=== PATIENT | female | born 1965 | race Caucasian/White ===

== ENCOUNTER 2020-05-14 18:37 | Inpatient (IN) | payer BC ==
[~2020-05-14 18:37] MED LIST: Iopamidol-370 76% 500 ML 1 ML ONE
[2020-05-14 19:40] LABS: #Basophils 0.1 thou/uL (0.0-0.2); #Lymphocytes 1.2 thou/uL (1.20-3.40); #Monocytes 0.9 thou/uL (0.11-0.59); %Basophils 0.4 % (0.0-1.0); %Eosinophils 0.2 % (0.0-10.0); %Lymphocytes 9.3 % (21.0-51.0); %Monocytes 6.6 % (0.0-10.0); %Neutrophils 83.5 % (42.0-75.0); Mean Corpuscular HGB CONC 33.3 g/dL (32.0-36.0); Mean Corpuscular Hemoglobin 29.4 pg (27.0-31.0); Mean Corpuscular Volume 88.2 fL (78.0-98.0); Platelet Count 286 thou/uL (130-400); RBC Distribution Width 12.1 % (11.5-14.5); Red Blood Cell (RBC) Count 5.47 mill/uL (4.20-5.40); White Blood Cell (WBC) Count 13.1 thou/uL (4.8-10.8)
[2020-05-14 20:12] LABS: ALT (SGPT) 31 U/L (8-55); AST (SGOT) 48 U/L (5-34); Albumin 3.6 g/dL (3.5-5.0); Alkaline Phosphatase 241 U/L (40-110); Anion Gap 17 mmol/L (10-20); BUN (Urea Nitrogen) 10 mg/dL (9.8-20.1); Bilirubin, Total 0.9 mg/dL (0.2-1.2); Calc. Creatinine Clearance 0 mL/min (70-130); Calcium 9.3 mg/dL (7.8-10.44); Carbon Dioxide 23 mmol/L (22-29); Chloride 100 mmol/L (98-107); Globulin 4.2 g/dL (2.4-3.5); Glucose 361 mg/dL (70-105); Potassium 3.7 mmol/L (3.5-5.1); Protein, Total 7.8 g/dL (6.0-8.3); Sodium 136 mmol/L (136-145)
[2020-05-14] MEDS ORDERED: Diltiazem 125 MG/25 ML ONE ×2 (20:16→21:23)
[2020-05-14] MEDS ORDERED: Promethazine HCl 25 MG/ML VIAL ONE ×2 (20:22→23:27)
[2020-05-14] MEDS ORDERED: Magnesium 2 GM/50 ML BAG (IN WATER) ONE (20:22)
[2020-05-14] MEDS ORDERED: Morphine 4 MG/ML VIAL ONE (20:35)
[2020-05-14] MEDS ORDERED: Ondansetron PF 4 MG/2 ML Vial ONE (20:35)
[2020-05-14 20:53] LABS: Bacteria/HPF None Seen HPF (None Seen); Bilirubin Negative (Negative); Blood, Urine Negative (Negative); Clarity Clear (Clear); Glucose, Urine (Dipstick) Greater than 1000 mg/dL (Negative); Ketone, Urine 60 mg/dL (Negative); Leukocyte Negative Leu/uL (Negative); Nitrite Negative (Negative); Protein, Urine (Dipstick) 50 mg/dL (Neg-Trace); RBC/HPF 0-3 HPF (0-3); Specific Gravity, Urine 1.033 (1.002-1.036); Urobilinogen Normal mg/dL (Less than 2)
[2020-05-14] MEDS ORDERED: cefTRIAXone\\ROCEPHIN 1 GM VIAL ONE (21:57)
[2020-05-14] MEDS ORDERED: HYDROmorphone 0.5 MG/0.5 ML SYRINGE ONE (23:26)
[2020-05-14] MEDS ORDERED: Amlodipine 5 MG TAB ONE (23:27)
[2020-05-14] MEDS ORDERED: Gabapentin 300 MG CAP PO SCH (23:45)
[2020-05-14] MEDS ORDERED: DULoxetine 60 MG CAP PO SCH (23:45)
[2020-05-14] MEDS ORDERED: tiZANidine HCl 4 MG TAB PO SCH (23:45)
[2020-05-15] MEDS ORDERED: Labetalol HCl 100 MG/20 ML VIAL ONE (00:23)
[2020-05-15] MEDS ORDERED: Ondansetron PF 4 MG/2 ML Vial IVP PRN (00:40)
[2020-05-15] MEDS ORDERED: Dextrose 5% in Water 1,000 ML IV PRN (00:57)
[2020-05-15] MEDS ORDERED: Dextrose 50% Abboject 50 ML SYRINGE SLOW IVP PRN (00:57)
[2020-05-15] MEDS ORDERED: hydrALAZINE 20 MG/ML VIAL SLOW IVP PRN (00:59)
[2020-05-15] MEDS ORDERED: HYDROmorphone 2 MG TAB PO PRN (01:02)
[2020-05-15] MEDS ORDERED: Vancomycin 1 GM/200 ML BAG ONE (01:22)
[2020-05-15 02:11] LABS: Amphetamine Not Detected (NotDetected); Barbiturates Screen Not Detected (NotDetected); Benzodiazepine Screen Not Detected (NotDetected); Cocaine Metabolite Screen Not Detected (NotDetected); Medtox Control Line Valid? VALID (VALID); Medtox Reader # READER 1; Methadone Not Detected (NotDetected); Methamphetamine Not Detected (NotDetected); Opiate Screen Detected (NotDetected); Oxycodone Screen Not Detected (NotDetected); Phencyclidine (PCP) Not Detected (NotDetected); THC/Cannabinoid Screen Not Detected (NotDetected); Tricyclic Screen Not Detected (NotDetected)
[2020-05-15 03:04] VITALS: BMI 29.2
[2020-05-15] MEDS ORDERED: Cefepime 1 GM VIAL ONE (04:54)
[2020-05-15] MEDS: Cefepime 1 GM in Sodium Chloride 0.9% 100 ML IVPB SCH ×2 (05:05→18:16)
[2020-05-15] MEDS ORDERED: Ondansetron PF 4 MG/2 ML Vial ONE (05:24)
[2020-05-15 05:51] LABS: SARS-CoV-2 PCR by NAA Not Detected (NotDetected)
[2020-05-15] MEDS ORDERED: HumaLOG 300 UNITS/3 ML VIAL ONE (07:33)
[2020-05-15] MEDS: HumaLOG 300 UNITS/3 ML VIAL SC PRN ×4 (07:40→22:35)
[2020-05-15 09:04] LABS: #Basophils 0.1 thou/uL (0.0-0.2); #Eosinphils 0.2 thou/uL (0.0-0.7); #Lymphocytes 2.8 thou/uL (1.20-3.40); #Monocytes 0.8 thou/uL (0.11-0.59); #Neutrophils 6.5 thou/uL (1.40-6.50); %Basophils 0.7 % (0.0-1.0); %Eosinophils 2.1 % (0.0-10.0); %Lymphocytes 26.9 % (21.0-51.0); %Monocytes 7.4 % (0.0-10.0); %Neutrophils 62.8 % (42.0-75.0); Hemoglobin 13.7 g/dL (12.0-16.0); Mean Corpuscular Hemoglobin 29.6 pg (27.0-31.0); Mean Corpuscular Volume 89.6 fL (78.0-98.0); Platelet Count 266 thou/uL (130-400); Red Blood Cell (RBC) Count 4.62 mill/uL (4.20-5.40); White Blood Cell (WBC) Count 10.4 thou/uL (4.8-10.8)
[2020-05-15 09:17] LABS: Anion Gap 14 mmol/L (10-20); BUN (Urea Nitrogen) 6 mg/dL (9.8-20.1); Calc. Creatinine Clearance 98 mL/min (70-130); Carbon Dioxide 23 mmol/L (22-29); Chloride 104 mmol/L (98-107); Potassium 3.2 mmol/L (3.5-5.1); Sodium 138 mmol/L (136-145)
[2020-05-15 09:18] LABS: Calcium 8.4 mg/dL (7.8-10.44); Glucose 218 mg/dL (70-105)
[2020-05-15] MEDS ORDERED: Potassium Chloride 20 MEQ TAB PO SCH (09:45)
[2020-05-15] MEDS ORDERED: Potassium Chloride 20 MEQ TAB ONE (10:06)
[2020-05-15] MEDS ORDERED: Acetaminophen 325 MG TAB ONE (10:30)
[2020-05-15] MEDS: Sodium Chloride 0.9% 1,000 ML IV SCH ×3 (10:48→23:02)
[2020-05-15] MEDS: Acetaminophen 325 MG TAB PO PRN ×3 (10:49→22:20)
[2020-05-15] MEDS: Gabapentin 300 MG CAP PO SCH ×2 (14:59→20:07)
[2020-05-15] MEDS: Vancomycin HCl 750 MG in Sodium Chloride 0.9% 250 ML 250 ML IVPB SCH (14:59)
[2020-05-15] MEDS: Promethazine 25 MG TAB PO PRN (16:42)
[2020-05-15] MEDS: HYDROmorphone 2 MG TAB PO PRN ×2 (16:42→22:33)
[2020-05-15] MEDS: tiZANidine HCl 4 MG TAB PO SCH (20:07)
[2020-05-15 23:44] LABS: Anion Gap 11 mmol/L (10-20); Carbon Dioxide 27 mmol/L (22-29); Chloride 105 mmol/L (98-107); Magnesium 1.7 mg/dL (1.6-2.6); Potassium 3.6 mmol/L (3.5-5.1); Sodium 139 mmol/L (136-145)
[2020-05-16] MEDS: Vancomycin HCl 750 MG in Sodium Chloride 0.9% 250 ML 250 ML IVPB SCH ×2 (02:22→15:08)
[2020-05-16] MEDS: Acetaminophen 325 MG TAB PO PRN ×3 (02:26→20:36)
[2020-05-16] MEDS: Cefepime 1 GM in Sodium Chloride 0.9% 100 ML IVPB SCH ×2 (04:51→17:58)
[2020-05-16] MEDS: HYDROmorphone 2 MG TAB PO PRN ×2 (04:52→17:58)
[2020-05-16 05:06] LABS: #Basophils 0.1 thou/uL (0.0-0.2); #Eosinphils 0.4 thou/uL (0.0-0.7); #Lymphocytes 2.8 thou/uL (1.20-3.40); #Monocytes 0.6 thou/uL (0.11-0.59); #Neutrophils 3.5 thou/uL (1.40-6.50); %Basophils 1.5 % (0.0-1.0); %Eosinophils 5.5 % (0.0-10.0); %Lymphocytes 38.4 % (21.0-51.0); %Monocytes 7.5 % (0.0-10.0); %Neutrophils 47.1 % (42.0-75.0); Hemoglobin 13.1 g/dL (12.0-16.0); Mean Corpuscular Hemoglobin 29.9 pg (27.0-31.0); Mean Corpuscular Volume 90.5 fL (78.0-98.0); Mean Platelet Volume 9.2 fL (7.4-10.4); Platelet Count 210 thou/uL (130-400); RBC Distribution Width 11.9 % (11.5-14.5); Red Blood Cell (RBC) Count 4.38 mill/uL (4.20-5.40); White Blood Cell (WBC) Count 7.4 thou/uL (4.8-10.8)
[2020-05-16 05:40] LABS: Anion Gap 15 mmol/L (10-20); BUN (Urea Nitrogen) 4 mg/dL (9.8-20.1); Calc. Creatinine Clearance 98 mL/min (70-130); Calcium 8.5 mg/dL (7.8-10.44); Carbon Dioxide 22 mmol/L (22-29); Chloride 105 mmol/L (98-107); Glucose 243 mg/dL (70-105); Potassium 3.2 mmol/L (3.5-5.1); Sodium 139 mmol/L (136-145)
[2020-05-16] MEDS: HumaLOG 300 UNITS/3 ML VIAL SC PRN ×4 (05:50→20:35)
[2020-05-16] MEDS ORDERED: HYDROMORPHONE HCL 8 MG PO SCH (09:00)
[2020-05-16] MEDS: Sodium Chloride 0.9% 1,000 ML IV SCH ×3 (09:50→20:35)
[2020-05-16] MEDS: DULoxetine 60 MG CAP PO SCH (09:52)
[2020-05-16] MEDS: Amlodipine 10 MG TAB PO SCH (09:53)
[2020-05-16] MEDS: Gabapentin 300 MG CAP PO SCH ×3 (09:53→20:37)
[2020-05-16] MEDS: HYDROmorphone 2 MG TAB PO SCH (09:54)
[2020-05-16] MEDS: Enoxaparin Sodium 40 MG/0.4 ML SYRINGE SC SCH (09:57)
[2020-05-16] MEDS: Potassium Chloride 20 MEQ TAB PO SCH ×2 (10:02→15:08)
[2020-05-16] MEDS ORDERED: Nitroglycerin 0.4 MG TAB (25 Tab Bottle) SL PRN (11:17)
[2020-05-16] MEDS: Promethazine 25 MG TAB PO PRN (11:29)
[2020-05-16] MEDS ORDERED: Metoprolol Tartrate 25 MG TAB PO SCH ×2 (11:30→21:00)
[2020-05-16 12:47] LABS: Troponin I Less than 0.010 ng/mL (< 0.028)
[2020-05-16] MEDS ORDERED: Magnesium Sulfate 3 GM in Sodium Chloride 0.9% 100 ML IVPB SCH (13:30)
[2020-05-16 15:28] LABS: Vancomycin, Trough 5.5 ug/mL
[2020-05-16 15:38] LABS: Troponin I Less than 0.010 ng/mL (< 0.028)
[2020-05-16] MEDS: tiZANidine HCl 4 MG TAB PO SCH (20:37)
[2020-05-16] MEDS: Vancomycin 1 GM in Premix Bag 1 BAG IVPB SCH (20:38)
[2020-05-17] MEDS: HYDROmorphone 2 MG TAB PO PRN ×3 (02:19→22:15)
[2020-05-17 04:17] LABS: #Basophils 0.1 thou/uL (0.0-0.2); #Eosinphils 0.4 thou/uL (0.0-0.7); #Lymphocytes 2.3 thou/uL (1.20-3.40); #Monocytes 0.4 thou/uL (0.11-0.59); #Neutrophils 3.4 thou/uL (1.40-6.50); %Basophils 1.3 % (0.0-1.0); %Eosinophils 6.3 % (0.0-10.0); %Lymphocytes 33.9 % (21.0-51.0); %Monocytes 6.5 % (0.0-10.0); %Neutrophils 51.9 % (42.0-75.0); Hemoglobin 13.3 g/dL (12.0-16.0); Mean Corpuscular HGB CONC 33.5 g/dL (32.0-36.0); Mean Corpuscular Hemoglobin 30.1 pg (27.0-31.0); Mean Corpuscular Volume 89.8 fL (78.0-98.0); Mean Platelet Volume 8.9 fL (7.4-10.4); Platelet Count 190 thou/uL (130-400); RBC Distribution Width 11.8 % (11.5-14.5); Red Blood Cell (RBC) Count 4.42 mill/uL (4.20-5.40); White Blood Cell (WBC) Count 6.6 thou/uL (4.8-10.8)
[2020-05-17 04:39] LABS: Anion Gap 15 mmol/L (10-20); BUN (Urea Nitrogen) 4 mg/dL (9.8-20.1); Calc. Creatinine Clearance 97 mL/min (70-130); Calcium 8.4 mg/dL (7.8-10.44); Carbon Dioxide 20 mmol/L (22-29); Chloride 106 mmol/L (98-107); Glucose 224 mg/dL (70-105); Magnesium 1.9 mg/dL (1.6-2.6); Potassium 4.6 mmol/L (3.5-5.1); Sodium 136 mmol/L (136-145)
[2020-05-17 04:40] LABS: Cardiac Risk 4.6 (Less than 4.5); Cholesterol 172 mg/dl (< 200 Desired); HDL Cholesterol 37 mg/dL (>60 Neg Risk); LDL Cholesterol, Calculated 93 mg/dL; Lipase 108 U/L (8-78); Phosphorus 3.7 mg/dL (2.3-4.7); Triglycerides 209 mg/dL (Less than 150)
[2020-05-17] MEDS: Vancomycin 1 GM in Premix Bag 1 BAG IVPB SCH ×3 (05:58→22:31)
[2020-05-17] MEDS: HumaLOG 300 UNITS/3 ML VIAL SC PRN ×3 (05:58→17:23)
[2020-05-17] MEDS: Acetaminophen 325 MG TAB PO PRN ×3 (06:21→15:57)
[2020-05-17] MEDS: Amlodipine 10 MG TAB PO SCH (08:49)
[2020-05-17] MEDS: DULoxetine 60 MG CAP PO SCH (08:49)
[2020-05-17] MEDS: Enoxaparin Sodium 40 MG/0.4 ML SYRINGE SC SCH (08:49)
[2020-05-17] MEDS: Gabapentin 300 MG CAP PO SCH ×3 (08:50→22:15)
[2020-05-17] MEDS: HYDROmorphone 2 MG TAB PO SCH (08:51)
[2020-05-17] MEDS: Cefepime 1 GM in Sodium Chloride 0.9% 100 ML IVPB SCH ×2 (08:52→22:24)
[2020-05-17] MEDS: Sodium Chloride 0.9% 1,000 ML IV SCH ×2 (09:09→22:14)
[2020-05-17] MEDS ORDERED: Lantus 1000 UNITS/10 ML VIAL SC SCH (21:00)
[2020-05-17] MEDS: tiZANidine HCl 4 MG TAB PO SCH (22:16)
[2020-05-17 22:27] LABS: Vancomycin, Trough 15.4 ug/mL
[2020-05-18] MEDS: HYDROmorphone 2 MG TAB PO PRN (04:38)
[2020-05-18] MEDS: HumaLOG 300 UNITS/3 ML VIAL SC PRN ×2 (05:28→12:27)
[2020-05-18] MEDS: Sodium Chloride 0.9% 1,000 ML IV SCH (08:59)
[2020-05-18] MEDS: Enoxaparin Sodium 40 MG/0.4 ML SYRINGE SC SCH (09:00)
[2020-05-18] MEDS: DULoxetine 60 MG CAP PO SCH (09:00)
[2020-05-18] MEDS ORDERED: Lisinopril 5 MG TAB PO SCH (09:00)
[2020-05-18] MEDS: HYDROmorphone 2 MG TAB PO SCH (09:02)
[2020-05-18] MEDS: Gabapentin 300 MG CAP PO SCH (09:04)
[2020-05-18] MEDS: Amlodipine 10 MG TAB PO SCH (09:32)
[2020-05-18 11:16] VITALS: TEMP 98.1
[2020-05-18] MEDS ORDERED: cloNIDine 0.1 MG TAB PO PRN (11:25)
[2020-05-18 12:25] VITALS: BP 159/87
[2020-05-18] MEDS: Acetaminophen 325 MG TAB PO PRN (12:26)
[2020-05-18] MEDS ORDERED: Rosuvastatin 10 MG TAB PO SCH (21:00)
== END 2020-05-18 14:35 | disposition home or self-care (01) | DRG 897 ==
LOC: ERS 18:37 → ERHOLD 22:59 → 2SW 05-15 14:11 → 2NO 05-15 22:50
PROVIDERS: ADMIT Internal Medicine; ATTEND Internal Medicine
DX: F11.288 Opioid dependence with other opioid-induced disorder (principal); I47.1 Supraventricular tachycardia; E11.9 Type 2 diabetes mellitus without complications; I10 Essential (primary) hypertension; K21.9 Gastro-esophageal reflux disease without esophagitis; G89.29 Other chronic pain; M54.5 Low back pain; M79.7 Fibromyalgia; E87.6 Hypokalemia; N28.1 Cyst of kidney, acquired; E83.42 Hypomagnesemia; E66.9 Obesity, unspecified; R10.9 Unspecified abdominal pain; Z68.29 Body mass index [BMI] 29.0-29.9, adult; Z90.49 Acquired absence of other specified parts of digestive tract; Z98.51 Tubal ligation status; Z82.49 Family history of ischemic heart disease and other diseases of the circulatory system
CPT/HCPCS: 36415; 36416; 70450; 71045; 71275; 74177; 80048; 80053; 80061; 80202; 80306; 81003; 81015; 82010; 82150; 83605; 83690; 83735; 84100; 84443; 84484; 85025; 87635; 93005; 93306; 96365; 96366; 96367; 96375; 96376; J0692; J0696; J1170; J1650; J1815; J2270; J2405; J2550; J3370; J3475; J3490; J7050; Q0169; Q9967; U0003; U0005

== ENCOUNTER 2021-03-06 19:23 | Emergency (ER) | payer BC ==
[2021-03-06] MEDS ORDERED: HYDROcodone/Acetaminophen 10/325 mg Tablet ONE (21:23)
[2021-03-07 02:46] LABS: SARS-CoV-2 NAA Rapid Test Not Detected (NotDetected)
== END 2021-03-06 21:00 | disposition home or self-care (01) ==
LOC: ERS 19:23
DX: S46.911A Strain of unspecified muscle, fascia and tendon at shoulder and upper arm level, right arm, initial encounter (principal); I10 Essential (primary) hypertension; E11.9 Type 2 diabetes mellitus without complications; Z20.822 Contact with and (suspected) exposure to COVID-19
CPT/HCPCS: 71046; U0002

== ENCOUNTER 2021-03-26 12:39 | Outpatient (CLI) | payer BC | END 2021-03-26 12:40 | disposition home or self-care (01) | LOC: CT 12:39 | PROVIDERS: ATTEND Physical Therapist | DX: M25.511 Pain in right shoulder (principal) ==

== ENCOUNTER 2021-05-27 11:21 | Outpatient (CLI) | payer BC | END 2021-05-27 11:22 | disposition home or self-care (01) | LOC: MRI 11:21 | PROVIDERS: ATTEND Orthopaedic Surgery | DX: M75.121 Complete rotator cuff tear or rupture of right shoulder, not specified as traumatic (principal); S46.211A Strain of muscle, fascia and tendon of other parts of biceps, right arm, initial encounter ==

== ENCOUNTER 2021-08-14 08:19 | Outpatient (CLI) | payer BC ==
[2021-08-14] MEDS ORDERED: Iopamidol 370 76% 100 ML VIAL ONE (11:57)
== END 2021-08-14 08:20 | disposition home or self-care (01) ==
LOC: CT 08:19
PROVIDERS: ATTEND Psychiatry & Neurology Neurology
DX: G43.719 Chronic migraine without aura, intractable, without status migrainosus (principal)
CPT/HCPCS: 70496; Q9967

== ENCOUNTER 2021-09-24 11:32 | Outpatient (CLI) | payer BC | END 2021-09-24 11:33 | disposition home or self-care (01) | LOC: SCSMRI 11:32 | PROVIDERS: ATTEND Orthopaedic Surgery | DX: M75.101 Unspecified rotator cuff tear or rupture of right shoulder, not specified as traumatic (principal); Z98.890 Other specified postprocedural states ==

== ENCOUNTER 2022-03-24 09:28 | Inpatient (IN) | payer BC ==
[2022-03-24 12:12] LABS: #Basophils 0.1 thou/uL (0.0-0.2); #Eosinphils 0.5 thou/uL (0.0-0.7); #Monocytes 0.7 thou/uL (0.11-0.59); #Neutrophils 8.6 thou/uL (1.40-6.50); %Basophils 0.5 % (0.0-1.0); %Eosinophils 3.7 % (0.0-10.0); %Lymphocytes 23.1 % (21.0-51.0); %Monocytes 5.2 % (0.0-10.0); %Neutrophils 67.5 % (42.0-75.0); Mean Corpuscular HGB CONC 33.6 g/dL (32.0-36.0); Mean Corpuscular Hemoglobin 29.8 pg (27.0-31.0); Mean Corpuscular Volume 88.7 fl (78.0-98.0); Mean Platelet Volume 10.3 fL (7.4-10.4); Platelet Count 185 10x3/uL (130-400); RBC Distribution Width 13.4 % (11.5-14.5); Red Blood Cell (RBC) Count 4.03 mill/uL (4.20-5.40); White Blood Cell (WBC) Count 12.8 10x3/uL (4.8-10.8)
[2022-03-24 12:41] LABS: ALT (SGPT) 24 U/L (8-55); AST (SGOT) 54 U/L (5-34); Alkaline Phosphatase 133 U/L (40-110); Anion Gap 18 mmol/L (10-20); BUN (Urea Nitrogen) 42 mg/dL (9.8-20.1); Bilirubin, Total 0.5 mg/dL (0.2-1.2); Calc. Creatinine Clearance 0 mL/min (70-130); Calcium 8.6 mg/dL (7.8-10.44); Carbon Dioxide 21 mmol/L (22-29); Chloride 101 mmol/L (98-107); Estimated GFR 11; Globulin 3.5 g/dL (2.4-3.5); Glucose 179 mg/dL (70-105); Potassium 4.5 mmol/L (3.5-5.1); Protein, Total 6.5 g/dL (6.0-8.3); Sodium 135 mmol/L (136-145)
[2022-03-24 13:05] LABS: Bacteria/HPF 2+ HPF (None Seen); Bilirubin Negative (Negative); Blood, Urine Negative (Negative); Calcium Oxalate Crystals 1+ HPF (None Seen); Clarity Turbid (Clear); Glucose, Urine (Dipstick) Normal (Negative); Ketone, Urine Trace mg/dL (Negative); Leukocyte Negative Leu/uL (Negative); Nitrite Negative (Negative); Protein, Urine (Dipstick) 70 mg/dL (Neg-Trace); RBC/HPF 0-3 HPF (0-3); pH, Urine 5.5 (5.0-9.0)
[2022-03-24] MEDS ORDERED: cefTRIAXone\\ROCEPHIN 2 GM VIAL ONE (13:53)
[2022-03-24] MEDS ORDERED: Dextrose 5% in Water 1,000 ML IV PRN (14:14)
[2022-03-24] MEDS ORDERED: Insulin Regular 300 UNITS/3 ML VIAL SC PRN (14:14)
[2022-03-24] MEDS ORDERED: Dextrose 50% Abboject 50 ML SYRINGE SLOW IVP PRN (14:14)
[2022-03-24] MEDS: Heparin 5,000 UNITS/ML VIAL SC SCH ×2 (15:13→22:21)
[2022-03-24 15:39] LABS: SARS-CoV-2 NAA Rapid Test Not Detected (NotDetected)
[2022-03-24 17:03] VITALS: BMI 43.0
[2022-03-24] MEDS ORDERED: Lactated Ringer's 1,000 ML IV SCH (17:30)
[2022-03-24] MEDS: HYDROmorphone 2 MG TAB PO PRN (19:02)
[2022-03-24] MEDS ORDERED: DULoxetine 60 MG CAP PO SCH (21:00)
[2022-03-24] MEDS ORDERED: Non-Formulary Item 1 EACH (Topiramate [Topiramate] 50 MG Tablet) PO SCH (21:00)
[2022-03-24] MEDS: Rosuvastatin 10 MG TAB PO SCH (22:21)
[2022-03-24] MEDS ORDERED: tiZANidine HCl 4 MG TAB PO SCH (23:30)
[2022-03-25] MEDS: HYDROmorphone 2 MG TAB PO PRN ×3 (00:19→18:08)
[2022-03-25] MEDS: Topiramate 100 MG TAB PO SCH ×3 (00:19→20:52)
[2022-03-25 05:01] LABS: #Basophils 0.1 thou/uL (0.0-0.2); #Eosinphils 0.6 thou/uL (0.0-0.7); #Lymphocytes 4.3 thou/uL (1.20-3.40); #Monocytes 0.9 thou/uL (0.11-0.59); #Neutrophils 6.4 thou/uL (1.40-6.50); %Basophils 0.4 % (0.0-1.0); %Eosinophils 5.1 % (0.0-10.0); %Lymphocytes 34.8 % (21.0-51.0); %Monocytes 7.6 % (0.0-10.0); %Neutrophils 52.1 % (42.0-75.0); Hemoglobin 11.8 g/dL (12.0-16.0); Mean Corpuscular HGB CONC 31.9 g/dL (32.0-36.0); Mean Corpuscular Hemoglobin 28.4 pg (27.0-31.0); Mean Corpuscular Volume 89.2 fl (78.0-98.0); Mean Platelet Volume 10.1 fL (7.4-10.4); Platelet Count 196 10x3/uL (130-400); RBC Distribution Width 13.4 % (11.5-14.5); Red Blood Cell (RBC) Count 4.14 mill/uL (4.20-5.40); White Blood Cell (WBC) Count 12.3 10x3/uL (4.8-10.8)
[2022-03-25 05:24] LABS: ALT (SGPT) 26 U/L (8-55); AST (SGOT) 49 U/L (5-34); Albumin 3.1 g/dL (3.5-5.0); Alkaline Phosphatase 150 U/L (40-110); Anion Gap 14 mmol/L (10-20); BUN (Urea Nitrogen) 40 mg/dL (9.8-20.1); Bilirubin, Total 0.4 mg/dL (0.2-1.2); Calc. Creatinine Clearance 39 mL/min (70-130); Calcium 9.3 mg/dL (7.8-10.44); Carbon Dioxide 24 mmol/L (22-29); Chloride 107 mmol/L (98-107); Estimated GFR 20; Globulin 3.6 g/dL (2.4-3.5); Glucose 182 mg/dL (70-105); Potassium 5.8 mmol/L (3.5-5.1); Protein, Total 6.7 g/dL (6.0-8.3); Sodium 139 mmol/L (136-145)
[2022-03-25 07:58] LABS: Potassium 6.5 mmol/L (3.5-5.1)
[2022-03-25] MEDS ORDERED: Dextrose 50% Abboject 50 ML SYRINGE SLOW IVP SCH (08:15)
[2022-03-25] MEDS ORDERED: LOKELMA 10 GM PACKET PO SCH (08:15)
[2022-03-25] MEDS ORDERED: Insulin Regular 300 UNITS/3 ML VIAL IVP SCH (08:15)
[2022-03-25] MEDS ORDERED: Famotidine 20 MG TAB PO SCH (09:00)
[2022-03-25] MEDS: Sodium Chloride 0.9% 1,000 ML IV SCH ×2 (09:59→20:54)
[2022-03-25] MEDS: Heparin 5,000 UNITS/ML VIAL SC SCH ×3 (10:00→20:53)
[2022-03-25] MEDS: Triple Antibiotic Oint 1 GM Packet TOP SCH ×3 (10:01→20:53)
[2022-03-25] MEDS: tiZANidine HCl 4 MG TAB PO PRN ×2 (10:11→20:52)
[2022-03-25 13:18] LABS: Anion Gap 11 mmol/L (10-20); BUN (Urea Nitrogen) 36 mg/dL (9.8-20.1); Calc. Creatinine Clearance 52 mL/min (70-130); Carbon Dioxide 22 mmol/L (22-29); Chloride 104 mmol/L (98-107); Estimated GFR 29; Glucose 243 mg/dL (70-105); Potassium 4.3 mmol/L (3.5-5.1); Sodium 133 mmol/L (136-145)
[2022-03-25 13:39] LABS: Calcium 9.1 mg/dL (7.8-10.44)
[2022-03-25 17:43] LABS: Potassium 4.4 mmol/L (3.5-5.1)
[2022-03-25] MEDS: Rosuvastatin 10 MG TAB PO SCH (20:53)
[2022-03-26] MEDS: HYDROmorphone 2 MG TAB PO PRN ×3 (04:24→18:42)
[2022-03-26 05:13] LABS: #Basophils 0.1 thou/uL (0.0-0.2); #Eosinphils 0.3 thou/uL (0.0-0.7); #Lymphocytes 2.8 thou/uL (1.20-3.40); #Monocytes 0.5 thou/uL (0.11-0.59); #Neutrophils 2.2 thou/uL (1.40-6.50); %Basophils 0.9 % (0.0-1.0); %Eosinophils 5.4 % (0.0-10.0); %Lymphocytes 47.1 % (21.0-51.0); %Monocytes 8.4 % (0.0-10.0); %Neutrophils 38.2 % (42.0-75.0); Hemoglobin 11.4 g/dL (12.0-16.0); Mean Corpuscular HGB CONC 32.4 g/dL (32.0-36.0); Mean Corpuscular Hemoglobin 29.2 pg (27.0-31.0); Mean Platelet Volume 9.8 fL (7.4-10.4); Platelet Count 164 10x3/uL (130-400); RBC Distribution Width 13.4 % (11.5-14.5); Red Blood Cell (RBC) Count 3.92 mill/uL (4.20-5.40); White Blood Cell (WBC) Count 5.9 10x3/uL (4.8-10.8)
[2022-03-26 05:35] LABS: ALT (SGPT) 24 U/L (8-55); AST (SGOT) 52 U/L (5-34); Albumin 3.2 g/dL (3.5-5.0); Alkaline Phosphatase 144 U/L (40-110); Anion Gap 11 mmol/L (10-20); BUN (Urea Nitrogen) 29 mg/dL (9.8-20.1); Bilirubin, Total 0.3 mg/dL (0.2-1.2); Calc. Creatinine Clearance 72 mL/min (70-130); Calcium 9.1 mg/dL (7.8-10.44); Carbon Dioxide 21 mmol/L (22-29); Chloride 107 mmol/L (98-107); Estimated GFR 43; Globulin 3.8 g/dL (2.4-3.5); Glucose 187 mg/dL (70-105); Potassium 4.8 mmol/L (3.5-5.1); Sodium 134 mmol/L (136-145)
[2022-03-26] MEDS: Sodium Chloride 0.9% 1,000 ML IV SCH ×2 (07:00→17:41)
[2022-03-26] MEDS ORDERED: Fioricet 325/50/40 mg Tablet PO PRN (08:26)
[2022-03-26] MEDS ORDERED: Rimegepant Sulfate [Nurtec Odt] 75 MG Tab.Rapdis SL PRN (08:35)
[2022-03-26] MEDS: Heparin 5,000 UNITS/ML VIAL SC SCH ×3 (09:04→20:25)
[2022-03-26] MEDS: Topiramate 100 MG TAB PO SCH ×2 (09:05→20:27)
[2022-03-26] MEDS: tiZANidine HCl 4 MG TAB PO PRN ×2 (09:05→20:29)
[2022-03-26] MEDS: Triple Antibiotic Oint 1 GM Packet TOP SCH ×3 (09:05→20:25)
[2022-03-26] MEDS ORDERED: traMADol HCl 50 MG TAB PO PRN (16:46)
[2022-03-26] MEDS ORDERED: Lidocaine 5% Patch TD SCH (17:00)
[2022-03-26] MEDS ORDERED: Sodium Chloride 0.9% 1,000 ML IV SCH (19:13)
[2022-03-26] MEDS: Rosuvastatin 10 MG TAB PO SCH (20:26)
[2022-03-26] MEDS: Senokot S 8.6-50 MG TAB PO SCH (20:26)
[2022-03-26] MEDS ORDERED: HumaLOG 300 UNITS/3 ML VIAL SC PRN (21:01)
[2022-03-26] MEDS ORDERED: HYDROcodone/Acetaminophen 7.5/325 mg Tablet PO SCH (21:15)
[2022-03-26] MEDS ORDERED: cloNIDine 0.1 MG TAB PO SCH (21:15)
[2022-03-26] MEDS ORDERED: HYDROmorphone 2 MG TAB PO SCH (23:30)
[2022-03-27] MEDS: HYDROmorphone 2 MG TAB PO PRN (04:59)
[2022-03-27] MEDS ORDERED: Transdermal Patch Removal TOP SCH (05:00)
[2022-03-27] MEDS: tiZANidine HCl 4 MG TAB PO PRN (05:02)
[2022-03-27 05:26] LABS: Anion Gap 11 mmol/L (10-20); BUN (Urea Nitrogen) 21 mg/dL (9.8-20.1); Calc. Creatinine Clearance 81 mL/min (70-130); Carbon Dioxide 23 mmol/L (22-29); Chloride 106 mmol/L (98-107); Estimated GFR 49; Glucose 208 mg/dL (70-105); Magnesium 1.8 mg/dL (1.6-2.6); Potassium 4.2 mmol/L (3.5-5.1); Sodium 136 mmol/L (136-145)
[2022-03-27] MEDS: Senokot S 8.6-50 MG TAB PO SCH (08:00)
[2022-03-27] MEDS: Triple Antibiotic Oint 1 GM Packet TOP SCH (08:00)
[2022-03-27] MEDS: Topiramate 100 MG TAB PO SCH (08:00)
[2022-03-27] MEDS: Heparin 5,000 UNITS/ML VIAL SC SCH (08:01)
[2022-03-27 08:02] VITALS: BP 114/74; TEMP 97.8
== END 2022-03-27 12:16 | disposition home or self-care (01) | DRG 683 ==
LOC: ERS 09:28 → ERHOLD 14:17 → 2SW 19:47
PROVIDERS: ADMIT Internal Medicine; ATTEND Internal Medicine
DX: N17.9 Acute kidney failure, unspecified (principal); E87.1 Hypo-osmolality and hyponatremia; E87.20 Acidosis, unspecified; Z20.822 Contact with and (suspected) exposure to COVID-19; M54.9 Dorsalgia, unspecified; G44.53 Primary thunderclap headache; E11.40 Type 2 diabetes mellitus with diabetic neuropathy, unspecified; E86.0 Dehydration; R07.89 Other chest pain; E87.5 Hyperkalemia; E78.5 Hyperlipidemia, unspecified; G89.4 Chronic pain syndrome; K76.0 Fatty (change of) liver, not elsewhere classified; D72.829 Elevated white blood cell count, unspecified; T73.0XXA Starvation, initial encounter; N18.30 Chronic kidney disease, stage 3 unspecified; I12.9 Hypertensive chronic kidney disease with stage 1 through stage 4 chronic kidney disease, or unspecified chronic kidney disease; Z98.1 Arthrodesis status; Z98.890 Other specified postprocedural states; Z98.51 Tubal ligation status; Z90.49 Acquired absence of other specified parts of digestive tract; Z80.41 Family history of malignant neoplasm of ovary; Z80.1 Family history of malignant neoplasm of trachea, bronchus and lung; Z82.49 Family history of ischemic heart disease and other diseases of the circulatory system; Z83.6 Family history of other diseases of the respiratory system; Z79.84 Long term (current) use of oral hypoglycemic drugs; Z79.4 Long term (current) use of insulin; Z79.899 Other long term (current) drug therapy
CPT/HCPCS: 36415; 36416; 70450; 71045; 74176; 80048; 80053; 81003; 81015; 83605; 83735; 83880; 84145; 84484; 85025; 87040; 93005; 93306; 95706; 95819; 95957; 96361; 96365; J0696; J1644; J1815; J7050; J7120; U0002

== ENCOUNTER 2022-03-30 12:14 | Outpatient (CLI) | payer BC | END 2022-03-30 12:15 | disposition home or self-care (01) | LOC: BICULT 12:14 | PROVIDERS: ATTEND Family Medicine | DX: R22.41 Localized swelling, mass and lump, right lower limb (principal) | CPT/HCPCS: 76999 ==

== ENCOUNTER 2022-04-15 23:05 | Inpatient (IN) | payer BC ==
[2022-04-15] MEDS ORDERED: Labetalol HCl 100 MG/20 ML VIAL ONE (23:54)
[2022-04-15 23:55] LABS: #Basophils 0.1 thou/uL (0.0-0.2); #Eosinphils 0.2 thou/uL (0.0-0.7); #Lymphocytes 3.1 thou/uL (1.20-3.40); #Monocytes 0.7 thou/uL (0.11-0.59); %Basophils 0.7 % (0.0-1.0); %Eosinophils 1.9 % (0.0-10.0); %Lymphocytes 30.7 % (21.0-51.0); %Monocytes 6.8 % (0.0-10.0); %Neutrophils 59.8 % (42.0-75.0); Hemoglobin 14.8 g/dL (12.0-16.0); Mean Corpuscular Hemoglobin 29.3 pg (27.0-31.0); Mean Platelet Volume 9.1 fL (7.4-10.4); Platelet Count 279 10x3/uL (130-400); RBC Distribution Width 13.3 % (11.5-14.5); Red Blood Cell (RBC) Count 5.05 mill/uL (4.20-5.40); White Blood Cell (WBC) Count 10.1 10x3/uL (4.8-10.8)
[2022-04-16 00:15] LABS: ALT (SGPT) 37 U/L (8-55); AST (SGOT) 57 U/L (5-34); Albumin 3.8 g/dL (3.5-5.0); Alkaline Phosphatase 220 U/L (40-110); Anion Gap 15 mmol/L (10-20); BUN (Urea Nitrogen) 21 mg/dL (9.8-20.1); Bilirubin, Total 0.5 mg/dL (0.2-1.2); Calc. Creatinine Clearance 0 mL/min (70-130); Calcium 9.6 mg/dL (7.8-10.44); Carbon Dioxide 21 mmol/L (22-29); Chloride 109 mmol/L (98-107); Estimated GFR 56; Globulin 3.9 g/dL (2.4-3.5); Glucose 150 mg/dL (70-105); Lipase 36 U/L (8-78); Magnesium 1.9 mg/dL (1.6-2.6); Potassium 3.8 mmol/L (3.5-5.1); Protein, Total 7.7 g/dL (6.0-8.3); Sodium 141 mmol/L (136-145)
[2022-04-16] MEDS ORDERED: Morphine 4 MG/ML VIAL ONE (00:18)
[2022-04-16] MEDS ORDERED: Ondansetron PF 4 MG/2 ML Vial ONE (00:19)
[2022-04-16] MEDS ORDERED: Aspirin Chewable 81 MG TAB ONE ×2 (00:19→00:20)
[2022-04-16] MEDS ORDERED: Benzonatate 100 MG CAP PO PRN (02:55)
[2022-04-16] MEDS ORDERED: Non-Formulary Item 1 EACH (Rimegepant Sulfate [Nurtec Odt] 75 MG Tab.Rapdis) PO PRN (02:55)
[2022-04-16] MEDS ORDERED: Ondansetron ODT 4 MG TAB PO PRN (03:00)
[2022-04-16] MEDS ORDERED: Senokot S 8.6-50 MG TAB PO PRN (03:00)
[2022-04-16] MEDS ORDERED: Acetaminophen 325 MG TAB PO PRN (03:00)
[2022-04-16] MEDS ORDERED: Acetaminophen 325 MG TAB ONE (03:30)
[2022-04-16 04:36] VITALS: BMI 40.4
[2022-04-16] MEDS ORDERED: Metoclopramide HCl 10 MG/2 ML VIAL IVP SCH (05:00)
[2022-04-16] MEDS ORDERED: Ketorolac Tromethamine 30 MG/ML VIAL IVP SCH (05:00)
[2022-04-16] MEDS ORDERED: Dextrose 5% in Water 1,000 ML IV PRN (05:02)
[2022-04-16] MEDS ORDERED: Dextrose 50% Abboject 50 ML SYRINGE SLOW IVP PRN (05:02)
[2022-04-16] MEDS: cloNIDine 0.1 MG TAB PO PRN ×2 (05:19→21:46)
[2022-04-16 05:29] LABS: Troponin I Less than 0.010 ng/mL (< 0.028)
[2022-04-16 06:50] LABS: Glucose 95 mg/dL (70-105)
[2022-04-16 07:35] LABS: Troponin I Less than 0.010 ng/mL (< 0.028)
[2022-04-16] MEDS: Amlodipine 5 MG TAB PO SCH (09:56)
[2022-04-16] MEDS: Gabapentin 300 MG CAP PO SCH ×5 (09:56→20:25)
[2022-04-16] MEDS: Topiramate 100 MG TAB PO SCH ×2 (09:58→20:25)
[2022-04-16] MEDS: HumuLIN 70/30 (300 UNITS/3 ML VIAL) SC SCH (10:00)
[2022-04-16] MEDS: DULoxetine 20 MG CAP PO SCH ×2 (10:06→21:44)
[2022-04-16] MEDS ORDERED: hydrALAZINE 25 MG TAB PO SCH (11:45)
[2022-04-16] MEDS: HumaLOG 300 UNITS/3 ML VIAL SC PRN ×2 (11:48→22:21)
[2022-04-16] MEDS ORDERED: Iopamidol-370 76% 500 ML 1 ML ONE (12:24)
[2022-04-16] MEDS: hydrALAZINE 25 MG TAB PO SCH ×2 (16:10→20:24)
[2022-04-16] MEDS: Morphine 2 MG/ML VIAL SLOW IVP PRN (19:33)
[2022-04-16] MEDS: Rosuvastatin 10 MG TAB PO SCH (20:25)
[2022-04-16] MEDS ORDERED: Morphine 2 MG/ML VIAL SLOW IVP SCH (22:00)
[2022-04-16] MEDS ORDERED: Labetalol HCl 100 MG/20 ML VIAL SLOW IVP SCH (23:00)
[2022-04-17] MEDS: HYDROcodone/Acetaminophen 7.5/325 mg Tablet PO PRN ×3 (01:36→17:05)
[2022-04-17] MEDS: Labetalol HCl 100 MG/20 ML VIAL SLOW IVP PRN ×2 (03:07→15:12)
[2022-04-17] MEDS: Morphine 2 MG/ML VIAL SLOW IVP PRN ×3 (06:01→21:29)
[2022-04-17] MEDS: DULoxetine 20 MG CAP PO SCH ×2 (08:43→20:14)
[2022-04-17] MEDS: Gabapentin 300 MG CAP PO SCH ×4 (08:43→20:10)
[2022-04-17] MEDS: Topiramate 100 MG TAB PO SCH ×2 (08:43→20:11)
[2022-04-17] MEDS: Amlodipine 5 MG TAB PO SCH (08:43)
[2022-04-17] MEDS: hydrALAZINE 25 MG TAB PO SCH (08:44)
[2022-04-17] MEDS: HumuLIN 70/30 (300 UNITS/3 ML VIAL) SC SCH (11:08)
[2022-04-17] MEDS: cloNIDine 0.1 MG TAB PO PRN (18:22)
[2022-04-17] MEDS: Labetalol HCl 100 MG TAB PO SCH (20:11)
[2022-04-17] MEDS: HumaLOG 300 UNITS/3 ML VIAL SC PRN (20:11)
[2022-04-17] MEDS: Rosuvastatin 10 MG TAB PO SCH (20:11)
[2022-04-17] MEDS ORDERED: Metoprolol Tartrate 25 MG TAB PO SCH (21:00)
[2022-04-18] MEDS: Labetalol HCl 100 MG/20 ML VIAL SLOW IVP PRN (00:07)
[2022-04-18] MEDS: HYDROcodone/Acetaminophen 7.5/325 mg Tablet PO PRN ×2 (00:08→09:14)
[2022-04-18] MEDS: Morphine 2 MG/ML VIAL SLOW IVP PRN ×2 (05:02→12:27)
[2022-04-18] MEDS: DULoxetine 20 MG CAP PO SCH (09:11)
[2022-04-18] MEDS: Labetalol HCl 100 MG TAB PO SCH (09:11)
[2022-04-18] MEDS: Topiramate 100 MG TAB PO SCH (09:11)
[2022-04-18] MEDS: Gabapentin 300 MG CAP PO SCH ×2 (09:12→12:26)
[2022-04-18] MEDS: Amlodipine 5 MG TAB PO SCH (09:12)
[2022-04-18] MEDS: HumuLIN 70/30 (300 UNITS/3 ML VIAL) SC SCH (09:12)
[2022-04-18 12:19] VITALS: BP 103/63; TEMP 98.1
[2022-04-18] MEDS: HumaLOG 300 UNITS/3 ML VIAL SC PRN (12:27)
== END 2022-04-18 15:37 | disposition home or self-care (01) | DRG 305 ==
LOC: ERS 23:05 → 2SW 04-16 03:04 → OBSVTOIN 04-17 14:19
PROVIDERS: ADMIT Student in an Organized Health Care Education/Training Program; ATTEND Internal Medicine
DX: I16.0 Hypertensive urgency (principal); G43.909 Migraine, unspecified, not intractable, without status migrainosus; M79.7 Fibromyalgia; Z20.822 Contact with and (suspected) exposure to COVID-19; G89.29 Other chronic pain; E11.42 Type 2 diabetes mellitus with diabetic polyneuropathy; K76.0 Fatty (change of) liver, not elsewhere classified; Z79.4 Long term (current) use of insulin; Z79.899 Other long term (current) drug therapy; Z90.49 Acquired absence of other specified parts of digestive tract; Z98.890 Other specified postprocedural states; Z98.51 Tubal ligation status
CPT/HCPCS: 36415; 36416; 71045; 71275; 74174; 76700; 76770; 80053; 82947; 83690; 83735; 83880; 84443; 84484; 85025; 93005; 93975; 96361; 96374; 96375; 96376; G0378; J1815; J1885; J2270; J2272; J2405; J2765; Q0162; Q9967; U0003; U0005

== ENCOUNTER 2022-05-05 11:36 | Emergency (ER) | payer BC, SELFPAY ==
[2022-05-05] MEDS ORDERED: Morphine 4 MG/ML VIAL ONE (12:19)
[2022-05-05 12:28] LABS: #Basophils 0.1 thou/uL (0.0-0.2); #Eosinphils 0.3 thou/uL (0.0-0.7); #Lymphocytes 3.3 thou/uL (1.20-3.40); #Monocytes 0.8 thou/uL (0.11-0.59); #Neutrophils 6.5 thou/uL (1.40-6.50); %Basophils 0.6 % (0.0-1.0); %Eosinophils 2.5 % (0.0-10.0); %Lymphocytes 30.3 % (21.0-51.0); %Monocytes 7.6 % (0.0-10.0); Hemoglobin 13.9 g/dL (12.0-16.0); Mean Corpuscular HGB CONC 34.1 g/dL (32.0-36.0); Mean Corpuscular Hemoglobin 29.2 pg (27.0-31.0); Mean Corpuscular Volume 85.6 fl (78.0-98.0); Mean Platelet Volume 9.8 fL (7.4-10.4); Platelet Count 207 10x3/uL (130-400); RBC Distribution Width 13.9 % (11.5-14.5); Red Blood Cell (RBC) Count 4.77 mill/uL (4.20-5.40)
[2022-05-05 12:54] LABS: ALT (SGPT) 31 U/L (8-55); AST (SGOT) 66 U/L (5-34); Albumin 3.7 g/dL (3.5-5.0); Alkaline Phosphatase 174 U/L (40-110); Anion Gap 14 mmol/L (10-20); BUN (Urea Nitrogen) 18 mg/dL (9.8-20.1); Bilirubin, Total 0.5 mg/dL (0.2-1.2); Calc. Creatinine Clearance 0 mL/min (70-130); Calcium 9.6 mg/dL (7.8-10.44); Carbon Dioxide 21 mmol/L (22-29); Chloride 104 mmol/L (98-107); Estimated GFR 30; Globulin 3.7 g/dL (2.4-3.5); Glucose 95 mg/dL (70-105); Magnesium 1.9 mg/dL (1.6-2.6); Potassium 3.7 mmol/L (3.5-5.1); Protein, Total 7.4 g/dL (6.0-8.3); Sodium 135 mmol/L (136-145)
[2022-05-05 15:28] LABS: Lactic Acid 1.5 mmol/L (0.5-2.2)
[2022-05-05] MEDS ORDERED: HYDROcodone/Acetaminophen 10/325 mg Tablet ONE (16:32)
== END 2022-05-05 16:40 | disposition home or self-care (01) ==
LOC: ERS 11:36
DX: S92.315A Nondisplaced fracture of first metatarsal bone, left foot, initial encounter for closed fracture (principal); S92.322A Displaced fracture of second metatarsal bone, left foot, initial encounter for closed fracture; S92.332A Displaced fracture of third metatarsal bone, left foot, initial encounter for closed fracture; S92.342A Displaced fracture of fourth metatarsal bone, left foot, initial encounter for closed fracture; E11.22 Type 2 diabetes mellitus with diabetic chronic kidney disease; I12.9 Hypertensive chronic kidney disease with stage 1 through stage 4 chronic kidney disease, or unspecified chronic kidney disease; N18.9 Chronic kidney disease, unspecified; W19.XXXA Unspecified fall, initial encounter
CPT/HCPCS: 28470; 36415; 70450; 71045; 80053; 83605; 83735; 84484; 85025; 93005; 94760; 96361; 96374; J2270

== ENCOUNTER 2022-10-15 11:08 | Outpatient (CLI) | payer BC | END 2022-10-15 11:09 | disposition home or self-care (01) | LOC: BICCT 11:08 | PROVIDERS: ATTEND Psychiatry & Neurology Neurology | DX: G43.719 Chronic migraine without aura, intractable, without status migrainosus (principal) | CPT/HCPCS: 70450 ==

== ENCOUNTER 2022-11-05 19:33 | Inpatient (IN) | payer BC ==
[2022-11-05] MEDS ORDERED: Morphine 4 MG/ML VIAL ONE (20:36)
[2022-11-05] MEDS ORDERED: Ondansetron PF 4 MG/2 ML Vial ONE (20:37)
[2022-11-05] MEDS ORDERED: Acetaminophen 500 MG TAB ONE (20:37)
[2022-11-05 20:48] LABS: #Basophils 0.1 thou/uL (0.0-0.2); #Eosinphils 0.2 thou/uL (0.0-0.7); #Monocytes 1.1 thou/uL (0.11-0.59); #Neutrophils 8.8 thou/uL (1.40-6.50); %Basophils 0.6 % (0.0-1.0); %Eosinophils 1.4 % (0.0-10.0); %Lymphocytes 18.6 % (21.0-51.0); %Monocytes 8.5 % (0.0-10.0); %Neutrophils 70.6 % (42.0-75.0); Hematocrit 36.2 % (36.0-47.0); Hemoglobin 11.6 g/dL (12.0-16.0); Mean Corpuscular Hemoglobin 26.4 pg (27.0-31.0); Mean Corpuscular Volume 82.3 fl (78.0-98.0); Mean Platelet Volume 11.6 fL (7.4-10.4); Platelet Count 275 10x3/uL (130-400); RBC Distribution Width 14.8 % (11.5-14.5); White Blood Cell (WBC) Count 12.5 10x3/uL (4.8-10.8)
[2022-11-05 21:13] LABS: Anion Gap 17 mmol/L (10-20); BUN (Urea Nitrogen) 31 mg/dL (9.8-20.1); Bilirubin, Total 0.6 mg/dL (0.2-1.2); Calc. Creatinine Clearance 0 mL/min (70-130); Calcium 9.6 mg/dL (7.8-10.44); Carbon Dioxide 24 mmol/L (22-29); Chloride 101 mmol/L (98-107); Estimated GFR 11; Glucose 195 mg/dL (70-105); Potassium 4.6 mmol/L (3.5-5.1); Protein, Total 7.6 g/dL (6.0-8.3); Sodium 137 mmol/L (136-145)
[2022-11-05 21:14] LABS: ALT (SGPT) 49 U/L (8-55); AST (SGOT) 93 U/L (5-34); Albumin 3.9 g/dL (3.5-5.0); Alkaline Phosphatase 117 U/L (40-110); CK (CPK) 1961 U/L (29-168); Globulin 3.7 g/dL (2.4-3.5); Lipase 17 U/L (8-78); Magnesium 1.7 mg/dL (1.6-2.6)
[2022-11-05 21:16] LABS: Troponin I Less than 0.010 ng/mL (< 0.028)
[2022-11-05 21:44] LABS: SARS-CoV-2 NAA Rapid Test Not Detected (NotDetected)
[2022-11-05] MEDS ORDERED: Dextrose 5% in Water 1,000 ML IV PRN (22:28)
[2022-11-05] MEDS ORDERED: Dextrose 50% Abboject 50 ML SYRINGE SLOW IVP PRN (22:28)
[2022-11-05] MEDS ORDERED: Glucagon 1 MG/ML KIT IM PRN (22:28)
[2022-11-05] MEDS ORDERED: Aspirin Chewable 81 MG TAB ONE (22:29)
[2022-11-05] MEDS ORDERED: Ondansetron PF 4 MG/2 ML Vial IVP PRN (22:57)
[2022-11-05] MEDS ORDERED: Acetaminophen 325 MG TAB PO PRN (22:57)
[2022-11-05] MEDS ORDERED: cefTRIAXone\\ROCEPHIN 1 GM in Sodium Chloride 0.9% 100 ML IVPB SCH (23:00)
[2022-11-05 23:46] VITALS: BMI 36.6
[2022-11-06] MEDS ORDERED: cefTRIAXone (ROCEPHIN) 2 GM VIAL ONE (00:01)
[2022-11-06 01:31] LABS: Lactic Acid 1.6 mmol/L (0.5-2.2)
[2022-11-06 02:14] LABS: Troponin I 0.016 ng/mL (< 0.028)
[2022-11-06 03:16] LABS: Bacteria/HPF 1+ HPF (None Seen); Bilirubin Negative (Negative); Blood, Urine Trace (Negative); CAUTI Indications for Culture Pelvic or flank pain; Clarity Turbid (Clear); Glucose, Urine (Dipstick) >=1000 mg/dL (Negative); Ketone, Urine Negative (Negative); Leukocyte Negative Leu/uL (Negative); Nitrite Negative (Negative); Protein, Urine (Dipstick) 20 mg/dL (Neg-Trace); RBC/HPF 0-3 HPF (0-3); Specific Gravity, Urine 1.013 (1.002-1.036); Squamous Epithelial 0-3 HPF (0-3); Urobilinogen Normal mg/dL (Less than 2)
[2022-11-06 03:17] LABS: Urine Culture Reflex No No
[2022-11-06] MEDS: Lactated Ringer's 1,000 ML IV SCH ×5 (03:26→22:59)
[2022-11-06] MEDS: HYDROcodone/Acetaminophen 5/325 mg Tablet PO PRN ×2 (05:26→11:30)
[2022-11-06 05:36] LABS: #Basophils 0.1 thou/uL (0.0-0.2); #Eosinphils 0.3 thou/uL (0.0-0.7); #Neutrophils 6.4 thou/uL (1.40-6.50); %Basophils 0.6 % (0.0-1.0); %Eosinophils 2.7 % (0.0-10.0); %Lymphocytes 23.2 % (21.0-51.0); %Monocytes 10.1 % (0.0-10.0); %Neutrophils 63.1 % (42.0-75.0); Hematocrit 33.4 % (36.0-47.0); Hemoglobin 10.4 g/dL (12.0-16.0); Mean Corpuscular HGB CONC 31.1 g/dL (32.0-36.0); Mean Corpuscular Hemoglobin 26.2 pg (27.0-31.0); Mean Corpuscular Volume 84.1 fl (78.0-98.0); Mean Platelet Volume 11.5 fL (7.4-10.4); Platelet Count 229 10x3/uL (130-400); Red Blood Cell (RBC) Count 3.97 mill/uL (4.20-5.40); White Blood Cell (WBC) Count 10.1 10x3/uL (4.8-10.8)
[2022-11-06 05:48] LABS: ALT (SGPT) 49 U/L (8-55); AST (SGOT) 88 U/L (5-34); Albumin 3.6 g/dL (3.5-5.0); Alkaline Phosphatase 107 U/L (40-110); Anion Gap 15 mmol/L (10-20); BUN (Urea Nitrogen) 31 mg/dL (9.8-20.1); Bilirubin, Total 0.5 mg/dL (0.2-1.2); Calc. Creatinine Clearance 27 mL/min (70-130); Calcium 8.5 mg/dL (7.8-10.44); Carbon Dioxide 19 mmol/L (22-29); Chloride 106 mmol/L (98-107); Estimated GFR 16; Globulin 3.4 g/dL (2.4-3.5); Glucose 215 mg/dL (70-105); Potassium 3.6 mmol/L (3.5-5.1); Sodium 136 mmol/L (136-145)
[2022-11-06 05:53] LABS: Troponin I Less than 0.010 ng/mL (< 0.028)
[2022-11-06 11:08] LABS: Troponin I Less than 0.010 ng/mL (< 0.028)
[2022-11-06] MEDS: Labetalol HCl 100 MG TAB PO SCH ×2 (11:29→22:35)
[2022-11-06] MEDS: HumuLIN 70/30 (300 UNITS/3 ML VIAL) SC SCH ×2 (11:40→22:44)
[2022-11-06] MEDS: HYDROmorphone 2 MG TAB PO PRN ×2 (16:27→22:56)
[2022-11-06] MEDS ORDERED: HYDROMORPHONE 4 MG PO SCH (17:00)
[2022-11-06] MEDS ORDERED: DULoxetine 60 MG CAP PO SCH (21:00)
[2022-11-06] MEDS: Gabapentin 300 MG CAP PO SCH (22:38)
[2022-11-07] MEDS: HYDROmorphone 2 MG TAB PO PRN ×5 (02:45→20:07)
[2022-11-07 04:41] LABS: #Eosinphils 0.3 thou/uL (0.0-0.7); #Monocytes 0.8 thou/uL (0.11-0.59); #Neutrophils 4.1 thou/uL (1.40-6.50); %Basophils 0.5 % (0.0-1.0); %Eosinophils 4.5 % (0.0-10.0); %Monocytes 10.1 % (0.0-10.0); %Neutrophils 53.6 % (42.0-75.0); Hematocrit 32.8 % (36.0-47.0); Hemoglobin 10.2 g/dL (12.0-16.0); Mean Corpuscular HGB CONC 31.1 g/dL (32.0-36.0); Mean Corpuscular Hemoglobin 26.3 pg (27.0-31.0); Mean Corpuscular Volume 84.5 fl (78.0-98.0); Mean Platelet Volume 11.6 fL (7.4-10.4); Platelet Count 260 10x3/uL (130-400); RBC Distribution Width 15.3 % (11.5-14.5); Red Blood Cell (RBC) Count 3.88 mill/uL (4.20-5.40); White Blood Cell (WBC) Count 7.6 10x3/uL (4.8-10.8)
[2022-11-07 05:15] LABS: Anion Gap 12 mmol/L (10-20); BUN (Urea Nitrogen) 15 mg/dL (9.8-20.1); CK (CPK) 507 U/L (29-168); Calc. Creatinine Clearance 58 mL/min (70-130); Calcium 9.3 mg/dL (7.8-10.44); Carbon Dioxide 25 mmol/L (22-29); Chloride 108 mmol/L (98-107); Estimated GFR 40; Glucose 196 mg/dL (70-105); Potassium 3.8 mmol/L (3.5-5.1); Sodium 141 mmol/L (136-145)
[2022-11-07] MEDS: HumaLOG 300 UNITS/3 ML VIAL SC PRN ×2 (06:28→12:03)
[2022-11-07] MEDS: Lactated Ringer's 1,000 ML IV SCH ×2 (06:47→20:05)
[2022-11-07] MEDS: HumuLIN 70/30 (300 UNITS/3 ML VIAL) SC SCH ×2 (10:10→20:06)
[2022-11-07] MEDS: Gabapentin 300 MG CAP PO SCH ×2 (10:10→20:06)
[2022-11-07] MEDS: Labetalol HCl 100 MG TAB PO SCH ×2 (10:10→20:06)
[2022-11-07] MEDS: Guaifenesin DM 100-10/5 ML UDCUP PO PRN ×2 (13:52→20:07)
[2022-11-08] MEDS: HYDROmorphone 2 MG TAB PO PRN ×3 (00:15→09:07)
[2022-11-08] MEDS: Lactated Ringer's 1,000 ML IV SCH (04:02)
[2022-11-08] MEDS: HumaLOG 300 UNITS/3 ML VIAL SC PRN (05:30)
[2022-11-08] MEDS: Labetalol HCl 100 MG TAB PO SCH (06:01)
[2022-11-08 07:05] LABS: #Basophils 0.1 thou/uL (0.0-0.2); #Eosinphils 0.3 thou/uL (0.0-0.7); #Monocytes 0.5 thou/uL (0.11-0.59); #Neutrophils 2.6 thou/uL (1.40-6.50); %Basophils 0.9 % (0.0-1.0); %Eosinophils 5.8 % (0.0-10.0); %Lymphocytes 39.6 % (21.0-51.0); %Monocytes 8.9 % (0.0-10.0); %Neutrophils 44.5 % (42.0-75.0); Hematocrit 35.1 % (36.0-47.0); Hemoglobin 10.7 g/dL (12.0-16.0); Mean Corpuscular HGB CONC 30.5 g/dL (32.0-36.0); Mean Corpuscular Hemoglobin 25.7 pg (27.0-31.0); Mean Corpuscular Volume 84.4 fl (78.0-98.0); Mean Platelet Volume 11.1 fL (7.4-10.4); Platelet Count 224 10x3/uL (130-400); RBC Distribution Width 14.8 % (11.5-14.5); Red Blood Cell (RBC) Count 4.16 mill/uL (4.20-5.40); White Blood Cell (WBC) Count 5.8 10x3/uL (4.8-10.8)
[2022-11-08 07:29] LABS: Anion Gap 12 mmol/L (10-20); BUN (Urea Nitrogen) 14 mg/dL (9.8-20.1); CK (CPK) 125 U/L (29-168); Calc. Creatinine Clearance 79 mL/min (70-130); Calcium 9.5 mg/dL (7.8-10.44); Carbon Dioxide 24 mmol/L (22-29); Chloride 106 mmol/L (98-107); Estimated GFR 58; Glucose 176 mg/dL (70-105); Potassium 3.9 mmol/L (3.5-5.1); Sodium 138 mmol/L (136-145)
[2022-11-08] MEDS: Gabapentin 300 MG CAP PO SCH (08:09)
[2022-11-08] MEDS: HumuLIN 70/30 (300 UNITS/3 ML VIAL) SC SCH (08:10)
[2022-11-08] MEDS: Guaifenesin DM 100-10/5 ML UDCUP PO PRN (08:12)
[2022-11-08 12:23] VITALS: BP 177/99; TEMP 98.4
== END 2022-11-08 12:29 | disposition home or self-care (01) | DRG 683 ==
LOC: ERS 19:33 → ERHOLD 22:02 → 2NO 11-06 04:24 → T4-A 11-07 18:56
PROVIDERS: ADMIT Internal Medicine; ATTEND Internal Medicine Critical Care Medicine
DX: N17.9 Acute kidney failure, unspecified (principal); M62.82 Rhabdomyolysis; G89.29 Other chronic pain; M54.50 Low back pain, unspecified; M79.7 Fibromyalgia; N28.1 Cyst of kidney, acquired; E11.9 Type 2 diabetes mellitus without complications; Z20.822 Contact with and (suspected) exposure to COVID-19; Z90.49 Acquired absence of other specified parts of digestive tract; Z98.1 Arthrodesis status; Z98.51 Tubal ligation status; Z98.890 Other specified postprocedural states
CPT/HCPCS: 36415; 36416; 71045; 76700; 80048; 80053; 81001; 82550; 83605; 83690; 83735; 83880; 84443; 84484; 85025; 85379; 87040; 93005; 94760; 96361; 96374; 96375; J0696; J1650; J1815; J2270; J2405; J3490; J7120

== ENCOUNTER 2023-01-04 08:08 | Inpatient (IN) | payer BC ==
[2023-01-04] MEDS ORDERED: Ondansetron PF 4 MG/2 ML Vial ONE (09:44)
[2023-01-04] MEDS ORDERED: Famotidine/PF 20 mg/2ml Vial ONE (09:44)
[2023-01-04 09:51] LABS: #Basophils 0.1 thou/uL (0.0-0.2); #Eosinphils 0.1 thou/uL (0.0-0.7); #Monocytes 0.7 thou/uL (0.11-0.59); #Neutrophils 6.2 thou/uL (1.40-6.50); %Basophils 0.9 % (0.0-1.0); %Lymphocytes 26.5 % (21.0-51.0); %Monocytes 6.9 % (0.0-10.0); %Neutrophils 64.4 % (42.0-75.0); Hematocrit 46.3 % (36.0-47.0); Hemoglobin 15.3 g/dL (12.0-16.0); Mean Corpuscular Volume 78.6 fl (78.0-98.0); Mean Platelet Volume 10.8 fL (7.4-10.4); Platelet Count 323 10x3/uL (130-400); RBC Distribution Width 14.6 % (11.5-14.5); Red Blood Cell (RBC) Count 5.89 mill/uL (4.20-5.40); White Blood Cell (WBC) Count 9.6 10x3/uL (4.8-10.8)
[2023-01-04 10:13] LABS: ALT (SGPT) 33 U/L (8-55); AST (SGOT) 46 U/L (5-34); Albumin 4.8 g/dL (3.5-5.0); Alkaline Phosphatase 197 U/L (40-110); Anion Gap 20 mmol/L (10-20); BUN (Urea Nitrogen) 5 mg/dL (9.8-20.1); Bilirubin, Total 0.8 mg/dL (0.2-1.2); CK (CPK) 56 U/L (29-168); Calc. Creatinine Clearance 0 mL/min (70-130); Calcium 10.2 mg/dL (7.8-10.44); Carbon Dioxide 21 mmol/L (22-29); Chloride 100 mmol/L (98-107); Estimated GFR 56; Globulin 4.1 g/dL (2.4-3.5); Glucose 307 mg/dL (70-105); Lipase 24 U/L (8-78); Potassium 3.8 mmol/L (3.5-5.1); Protein, Total 8.9 g/dL (6.0-8.3); Sodium 137 mmol/L (136-145)
[2023-01-04 10:17] LABS: Troponin I 0.027 ng/mL (< 0.028)
[2023-01-04] MEDS ORDERED: Morphine 4 MG/ML VIAL ONE ×2 (10:38→12:32)
[2023-01-04] MEDS ORDERED: Ketorolac Tromethamine 30 MG/ML VIAL ONE ×2 (10:38→10:39)
[2023-01-04] MEDS ORDERED: Metoclopramide HCl 10 MG/2 ML VIAL ONE (10:38)
[2023-01-04 11:37] LABS: Bacteria/HPF None Seen HPF (None Seen); Bilirubin Negative (Negative); Blood, Urine Negative (Negative); CAUTI Indications for Culture Pelvic or flank pain; Clarity Clear (Clear); Glucose, Urine (Dipstick) Greater than 1000 mg/dL (Negative); Ketone, Urine 20 mg/dL (Negative); Leukocyte Negative Leu/uL (Negative); Nitrite Negative (Negative); Protein, Urine (Dipstick) 30 mg/dL (Neg-Trace); RBC/HPF 0-3 HPF (0-3); Specific Gravity, Urine 1.019 (1.002-1.036); Squamous Epithelial 0-3 HPF (0-3); Urobilinogen Normal mg/dL (Less than 2); WBC/HPF 0-3 HPF (0-3); pH, Urine 7.5 (5.0-9.0)
[2023-01-04 11:39] LABS: Urine Culture Reflex No No
[2023-01-04] MEDS ORDERED: Haloperidol Lactate 5 MG/ML VIAL ONE (12:32)
[2023-01-04] MEDS ORDERED: Pantoprazole 40 MG VIAL ONE (12:33)
[2023-01-04] MEDS ORDERED: Pantoprazole 80 MG in Sodium Chloride 0.9% 100 ML IVPB SCH (13:42)
[2023-01-04] MEDS ORDERED: HYDROmorphone 0.5 MG/0.5 ML SYRINGE SLOW IVP SCH ×2 (13:45→14:45)
[2023-01-04] MEDS ORDERED: Metoprolol Tartrate 5 MG/5 ML VIAL ONE (13:49)
[2023-01-04] MEDS: Metoprolol Tartrate 5 MG/5 ML VIAL IVP SCH ×2 (13:54→20:46)
[2023-01-04] MEDS ORDERED: Pantoprazole 80 MG, Admixture Fee 1 EACH in Sodium Chloride 0.9% 100 ML IVPB SCH (14:15)
[2023-01-04] MEDS ORDERED: Promethazine HCl 12.5 MG in Sodium Chloride 0.9% 50 ML IVPB PRN (14:23)
[2023-01-04] MEDS: Lactated Ringer's 1,000 ML IV SCH ×2 (14:27→22:23)
[2023-01-04 17:35] VITALS: BMI 36.1
[2023-01-04] MEDS: hydrALAZINE 20 MG/ML VIAL SLOW IVP PRN ×2 (18:01→22:20)
[2023-01-04] MEDS ORDERED: diphenhydrAMINE 50 MG/ML VIAL IVP PRN (18:54)
[2023-01-04] MEDS ORDERED: diphenhydrAMINE 50 MG/ML VIAL IM PRN (18:54)
[2023-01-04] MEDS ORDERED: Ondansetron PF 4 MG/2 ML Vial IVP PRN (18:54)
[2023-01-04] MEDS ORDERED: diphenhydrAMINE 25 MG CAP PO PRN (18:54)
[2023-01-04] MEDS ORDERED: HYDROmorphone/PF 10 MG in Sodium Chloride 0.9% 99 ML IV PRN (18:54)
[2023-01-04] MEDS ORDERED: Naloxone HCl 0.4 mg/ml Vial IV PRN (18:54)
[2023-01-04] MEDS ORDERED: Communication Order-Pharmacy FS SCH (19:00)
[2023-01-04] MEDS: Pantoprazole 40 MG VIAL IVP SCH (20:46)
[2023-01-04] MEDS: Promethazine HCl 25 MG/ML VIAL IM PRN (23:01)
[2023-01-05] MEDS ORDERED: Labetalol HCl 100 MG/20 ML VIAL SLOW IVP SCH ×2 (00:15→02:45)
[2023-01-05] MEDS: Metoprolol Tartrate 5 MG/5 ML VIAL IVP SCH ×3 (02:26→12:54)
[2023-01-05] MEDS ORDERED: Lactated Ringer's 1,000 ML IV SCH ×3 (02:45→10:32)
[2023-01-05 04:00] LABS: #Basophils 0.1 thou/uL (0.0-0.2); #Monocytes 0.5 thou/uL (0.11-0.59); #Neutrophils 7.1 thou/uL (1.40-6.50); %Basophils 1.3 % (0.0-1.0); %Eosinophils 0.2 % (0.0-10.0); %Lymphocytes 18.9 % (21.0-51.0); %Monocytes 5.4 % (0.0-10.0); Hematocrit 46.9 % (36.0-47.0); Hemoglobin 15.2 g/dL (12.0-16.0); Mean Corpuscular HGB CONC 32.4 g/dL (32.0-36.0); Mean Corpuscular Hemoglobin 25.8 pg (27.0-31.0); Mean Corpuscular Volume 79.6 fl (78.0-98.0); Platelet Count 275 10x3/uL (130-400); RBC Distribution Width 15.2 % (11.5-14.5); Red Blood Cell (RBC) Count 5.89 mill/uL (4.20-5.40); White Blood Cell (WBC) Count 9.6 10x3/uL (4.8-10.8)
[2023-01-05 04:25] LABS: ALT (SGPT) 33 U/L (8-55); AST (SGOT) 44 U/L (5-34); Albumin 4.1 g/dL (3.5-5.0); Alkaline Phosphatase 178 U/L (40-110); Anion Gap 19 mmol/L (10-20); BUN (Urea Nitrogen) 6 mg/dL (9.8-20.1); Calc. Creatinine Clearance 88 mL/min (70-130); Calcium 9.5 mg/dL (7.8-10.44); Carbon Dioxide 21 mmol/L (22-29); Chloride 101 mmol/L (98-107); Estimated GFR 67; Globulin 3.7 g/dL (2.4-3.5); Glucose 347 mg/dL (70-105); Potassium 3.8 mmol/L (3.5-5.1); Protein, Total 7.8 g/dL (6.0-8.3); Sodium 137 mmol/L (136-145)
[2023-01-05] MEDS ORDERED: Dextrose 5% in Water 1,000 ML IV PRN (05:30)
[2023-01-05] MEDS ORDERED: Glucagon 1 MG/ML KIT IM PRN (05:30)
[2023-01-05] MEDS ORDERED: Dextrose 50% Abboject 50 ML SYRINGE IVP PRN (05:30)
[2023-01-05] MEDS ORDERED: HumaLOG 300 UNITS/3 ML VIAL SC PRN (05:30)
[2023-01-05] MEDS: hydrALAZINE 20 MG/ML VIAL SLOW IVP PRN ×2 (05:44→14:16)
[2023-01-05] MEDS: Insulin NPH Human Isophane 100 UNITS/ML (10 ML VIAL) SC SCH ×2 (09:00→21:16)
[2023-01-05] MEDS: Pantoprazole 40 MG VIAL IVP SCH ×2 (09:00→21:12)
[2023-01-05] MEDS ORDERED: Lidocaine 1% PF 5 ML VIAL ONE (10:15)
[2023-01-05] MEDS ORDERED: PROPOFOL 200 MG/20 ML VIAL ONE (10:15)
[2023-01-05] MEDS ORDERED: Metoprolol Tartrate 5 MG/5 ML VIAL ONE (10:33)
[2023-01-05] MEDS ORDERED: Ondansetron PF 4 MG/2 ML Vial ONE (10:42)
[2023-01-05] MEDS ORDERED: Sodium Chloride 0.9% 1,000 ML IV SCH (10:45)
[2023-01-05] MEDS ORDERED: hydrALAZINE 20 MG/ML VIAL ONE (11:02)
[2023-01-05] MEDS: Promethazine HCl 25 MG/ML VIAL IM PRN (12:58)
[2023-01-05] MEDS ORDERED: Metoprolol Tartrate 25 MG TAB PO SCH ×2 (16:00→21:00)
[2023-01-05] MEDS ORDERED: HYDROmorphone 2 MG TAB PO PRN (16:03)
[2023-01-05] MEDS ORDERED: Acetaminophen 500 MG TAB PO PRN (16:42)
[2023-01-05] MEDS: Acetaminophen 500 MG TAB PO PRN (17:42)
[2023-01-05] MEDS ORDERED: Doxepin HCl 10 MG CAP PO PRN (18:03)
[2023-01-05] MEDS: Lactated Ringer's 1,000 ML IV SCH (18:28)
[2023-01-05] MEDS: HumaLOG 300 UNITS/3 ML VIAL SC PRN ×2 (18:29→21:17)
[2023-01-05] MEDS ORDERED: tiZANidine HCl 4 MG TAB PO SCH (21:00)
[2023-01-05] MEDS: DULoxetine 20 MG CAP PO SCH (21:08)
[2023-01-05] MEDS: Rosuvastatin 10 MG TAB PO SCH (21:08)
[2023-01-06] MEDS: HumaLOG 300 UNITS/3 ML VIAL SC PRN ×3 (01:24→20:57)
[2023-01-06] MEDS ORDERED: Sodium Chloride 0.9% 500 ML IV SCH ×2 (04:30→05:15)
[2023-01-06] MEDS ORDERED: NOREPINEPHRINE 8 MG/250 ML-D5W 250 ML IVPB SCH (05:45)
[2023-01-06] MEDS ORDERED: Sodium Chloride 0.9% 1,000 ML IV SCH (05:45)
[2023-01-06 06:40] LABS: #Basophils 0.1 thou/uL (0.0-0.2); #Eosinphils 0.2 thou/uL (0.0-0.7); #Neutrophils 5.1 thou/uL (1.40-6.50); %Basophils 1.1 % (0.0-1.0); %Lymphocytes 37.8 % (21.0-51.0); %Monocytes 9.7 % (0.0-10.0); Hematocrit 39.8 % (36.0-47.0); Hemoglobin 12.2 g/dL (12.0-16.0); Mean Corpuscular HGB CONC 30.7 g/dL (32.0-36.0); Mean Corpuscular Volume 84.9 fl (78.0-98.0); Mean Platelet Volume 10.8 fL (7.4-10.4); Platelet Count 214 10x3/uL (130-400); RBC Distribution Width 15.7 % (11.5-14.5); Red Blood Cell (RBC) Count 4.69 mill/uL (4.20-5.40); White Blood Cell (WBC) Count 10.4 10x3/uL (4.8-10.8)
[2023-01-06] MEDS: Levothyroxine Sodium 25 MCG TAB PO SCH (06:40)
[2023-01-06] MEDS: Lactated Ringer's 1,000 ML IV SCH (06:43)
[2023-01-06 06:59] LABS: Troponin I 0.041 ng/mL (< 0.028)
[2023-01-06 07:02] LABS: Calcium 8.7 mg/dL (7.8-10.44); Chloride 104 mmol/L (98-107); Potassium 3.6 mmol/L (3.5-5.1); Sodium 133 mmol/L (136-145)
[2023-01-06 07:07] LABS: Glucose 262 mg/dL (70-105)
[2023-01-06 07:09] LABS: Anion Gap 16 mmol/L (10-20); Carbon Dioxide 18 mmol/L (22-29)
[2023-01-06 07:10] LABS: Calc. Creatinine Clearance 61 mL/min (70-130); Estimated GFR 44
[2023-01-06 07:11] LABS: BUN (Urea Nitrogen) 11 mg/dL (9.8-20.1)
[2023-01-06] MEDS: Pantoprazole 40 MG VIAL IVP SCH ×2 (08:56→20:30)
[2023-01-06] MEDS: Metoprolol Tartrate 25 MG TAB PO SCH ×2 (10:04→20:29)
[2023-01-06] MEDS: DULoxetine 20 MG CAP PO SCH ×2 (10:04→20:30)
[2023-01-06] MEDS: Insulin NPH Human Isophane 100 UNITS/ML (10 ML VIAL) SC SCH ×2 (10:05→20:38)
[2023-01-06] MEDS ORDERED: Iopamidol-370 76% 500 ML MDV (1 ML CHARGE) ONE (12:59)
[2023-01-06] MEDS: HYDROmorphone 2 MG TAB PO SCH ×3 (13:53→20:25)
[2023-01-06] MEDS: Gabapentin 300 MG CAP PO SCH ×2 (14:35→20:29)
[2023-01-06] MEDS: hydrALAZINE 20 MG/ML VIAL SLOW IVP PRN (16:57)
[2023-01-06] MEDS ORDERED: Labetalol HCl 100 MG/20 ML VIAL SLOW IVP PRN (18:06)
[2023-01-06] MEDS ORDERED: hydrALAZINE 20 MG/ML VIAL SLOW IVP SCH (18:15)
[2023-01-06] MEDS: Acetaminophen 500 MG TAB PO PRN (18:58)
[2023-01-06] MEDS: Rosuvastatin 10 MG TAB PO SCH (20:28)
[2023-01-06 21:42] LABS: Amphetamine Not Detected (NotDetected); Barbiturates Screen Not Detected (NotDetected); Benzodiazepine Screen Not Detected (NotDetected); Cocaine Metabolite Screen Not Detected (NotDetected); Methadone Not Detected (NotDetected); Methamphetamine Not Detected (NotDetected); Opiate Screen Detected (NotDetected); Oxycodone Screen Not Detected (NotDetected); Phencyclidine (PCP) Not Detected (NotDetected); THC/Cannabinoid Screen Not Detected (NotDetected); Tricyclic Screen Not Detected (NotDetected)
[2023-01-07] MEDS: SUMAtriptan Succinate 50 MG TAB PO PRN (00:12)
[2023-01-07] MEDS: Acetaminophen 500 MG TAB PO PRN (03:06)
[2023-01-07] MEDS ORDERED: Ketorolac Tromethamine 30 MG/ML VIAL IVP SCH (04:00)
[2023-01-07] MEDS: Levothyroxine Sodium 25 MCG TAB PO SCH (04:11)
[2023-01-07] MEDS: hydrALAZINE 20 MG/ML VIAL SLOW IVP PRN ×2 (04:18→16:59)
[2023-01-07 05:49] LABS: Anion Gap 19 mmol/L (10-20); BUN (Urea Nitrogen) 10 mg/dL (9.8-20.1); Calc. Creatinine Clearance 95 mL/min (70-130); Calcium 9.2 mg/dL (7.8-10.44); Carbon Dioxide 20 mmol/L (22-29); Chloride 101 mmol/L (98-107); Estimated GFR 70; Glucose 308 mg/dL (70-105); Potassium 3.8 mmol/L (3.5-5.1); Sodium 136 mmol/L (136-145)
[2023-01-07] MEDS: HumaLOG 300 UNITS/3 ML VIAL SC PRN ×4 (06:40→18:54)
[2023-01-07] MEDS: Sodium Chloride 0.9% 1,000 ML IV SCH ×3 (08:29→21:36)
[2023-01-07] MEDS: DULoxetine 20 MG CAP PO SCH ×2 (08:29→21:26)
[2023-01-07] MEDS: Gabapentin 300 MG CAP PO SCH ×3 (08:30→21:26)
[2023-01-07] MEDS: Nebivolol HCl 5 MG TAB PO SCH (08:30)
[2023-01-07] MEDS: Pantoprazole 40 MG VIAL IVP SCH ×2 (08:31→21:27)
[2023-01-07] MEDS: Insulin NPH Human Isophane 100 UNITS/ML (10 ML VIAL) SC SCH ×2 (08:41→22:41)
[2023-01-07] MEDS: HYDROmorphone 2 MG TAB PO SCH ×4 (08:41→21:24)
[2023-01-07] MEDS ORDERED: Iopamidol 370 76% 100 ML VIAL ONE (13:33)
[2023-01-07] MEDS ORDERED: Ketorolac Tromethamine 10 MG TAB PO SCH (14:00)
[2023-01-07] MEDS: FLU VACC QS2023-24(6MOS UP)/PF 60 MCG/0.5 ML SYRINGE IM ONE ×2 (16:48→18:55)
[2023-01-07] MEDS: Rosuvastatin 10 MG TAB PO SCH (21:27)
[2023-01-08] MEDS: SUMAtriptan Succinate 50 MG TAB PO PRN (00:39)
[2023-01-08] MEDS: Acetaminophen 500 MG TAB PO PRN (04:51)
[2023-01-08 04:57] LABS: #Basophils 0.1 thou/uL (0.0-0.2); #Eosinphils 0.4 thou/uL (0.0-0.7); #Monocytes 0.7 thou/uL (0.11-0.59); #Neutrophils 3.5 thou/uL (1.40-6.50); %Basophils 1.2 % (0.0-1.0); %Eosinophils 4.3 % (0.0-10.0); %Lymphocytes 44.3 % (21.0-51.0); %Monocytes 7.8 % (0.0-10.0); %Neutrophils 42.3 % (42.0-75.0); Hematocrit 44.1 % (36.0-47.0); Hemoglobin 13.7 g/dL (12.0-16.0); Mean Corpuscular HGB CONC 31.1 g/dL (32.0-36.0); Mean Corpuscular Hemoglobin 25.6 pg (27.0-31.0); Mean Corpuscular Volume 82.4 fl (78.0-98.0); Mean Platelet Volume 11.4 fL (7.4-10.4); Platelet Count 276 10x3/uL (130-400); RBC Distribution Width 15.6 % (11.5-14.5); Red Blood Cell (RBC) Count 5.35 mill/uL (4.20-5.40); White Blood Cell (WBC) Count 8.3 10x3/uL (4.8-10.8)
[2023-01-08 05:27] LABS: ALT (SGPT) 20 U/L (8-55); AST (SGOT) 27 U/L (5-34); Albumin 3.7 g/dL (3.5-5.0); Alkaline Phosphatase 128 U/L (40-110); Anion Gap 15 mmol/L (10-20); BUN (Urea Nitrogen) 9 mg/dL (9.8-20.1); Bilirubin, Total 0.4 mg/dL (0.2-1.2); Calc. Creatinine Clearance 98 mL/min (70-130); Calcium 9.1 mg/dL (7.8-10.44); Carbon Dioxide 24 mmol/L (22-29); Chloride 104 mmol/L (98-107); Estimated GFR 73; Globulin 3.3 g/dL (2.4-3.5); Glucose 159 mg/dL (70-105); Potassium 3.9 mmol/L (3.5-5.1); Sodium 139 mmol/L (136-145)
[2023-01-08] MEDS: Levothyroxine Sodium 25 MCG TAB PO SCH (06:03)
[2023-01-08] MEDS: Sodium Chloride 0.9% 1,000 ML IV SCH (06:06)
[2023-01-08] MEDS: HYDROmorphone 2 MG TAB PO SCH ×4 (08:49→21:01)
[2023-01-08] MEDS: Insulin NPH Human Isophane 100 UNITS/ML (10 ML VIAL) SC SCH ×2 (08:50→20:59)
[2023-01-08] MEDS: hydrALAZINE 20 MG/ML VIAL SLOW IVP PRN (08:51)
[2023-01-08] MEDS: Pantoprazole 40 MG VIAL IVP SCH ×2 (08:52→20:57)
[2023-01-08] MEDS: Amlodipine 10 MG TAB PO SCH (08:54)
[2023-01-08] MEDS: Fluconazole 100 MG TAB PO SCH (08:54)
[2023-01-08] MEDS: DULoxetine 20 MG CAP PO SCH ×2 (08:54→21:00)
[2023-01-08] MEDS: Gabapentin 300 MG CAP PO SCH ×3 (08:54→21:01)
[2023-01-08] MEDS: Nebivolol HCl 5 MG TAB PO SCH (08:54)
[2023-01-08] MEDS: HumaLOG 300 UNITS/3 ML VIAL SC PRN ×2 (12:50→19:06)
[2023-01-08] MEDS ORDERED: Ketorolac Tromethamine 10 MG TAB PO SCH (15:00)
[2023-01-08] MEDS: Rosuvastatin 10 MG TAB PO SCH (21:01)
[2023-01-09] MEDS: Acetaminophen 500 MG TAB PO PRN (04:07)
[2023-01-09 04:39] LABS: #Basophils 0.1 thou/uL (0.0-0.2); #Eosinphils 0.3 thou/uL (0.0-0.7); #Monocytes 0.6 thou/uL (0.11-0.59); #Neutrophils 2.6 thou/uL (1.40-6.50); %Basophils 1.4 % (0.0-1.0); %Lymphocytes 43.1 % (21.0-51.0); %Monocytes 9.6 % (0.0-10.0); %Neutrophils 40.7 % (42.0-75.0); Hematocrit 39.6 % (36.0-47.0); Mean Corpuscular HGB CONC 30.3 g/dL (32.0-36.0); Mean Corpuscular Hemoglobin 25.9 pg (27.0-31.0); Mean Platelet Volume 11.6 fL (7.4-10.4); Platelet Count 182 10x3/uL (130-400); RBC Distribution Width 15.8 % (11.5-14.5); Red Blood Cell (RBC) Count 4.64 mill/uL (4.20-5.40); White Blood Cell (WBC) Count 6.4 10x3/uL (4.8-10.8)
[2023-01-09 04:59] LABS: Mean Corpuscular Volume 85.3 fl (78.0-98.0)
[2023-01-09 05:03] LABS: ALT (SGPT) 16 U/L (8-55); AST (SGOT) 26 U/L (5-34); Albumin 3.1 g/dL (3.5-5.0); Alkaline Phosphatase 112 U/L (40-110); Anion Gap 14 mmol/L (10-20); BUN (Urea Nitrogen) 12 mg/dL (9.8-20.1); Bilirubin, Total 0.2 mg/dL (0.2-1.2); Calc. Creatinine Clearance 86 mL/min (70-130); Calcium 8.8 mg/dL (7.8-10.44); Carbon Dioxide 23 mmol/L (22-29); Chloride 105 mmol/L (98-107); Estimated GFR 63; Globulin 2.7 g/dL (2.4-3.5); Glucose 260 mg/dL (70-105); Potassium 4.5 mmol/L (3.5-5.1); Protein, Total 5.8 g/dL (6.0-8.3); Sodium 137 mmol/L (136-145)
[2023-01-09] MEDS: Levothyroxine Sodium 25 MCG TAB PO SCH (06:44)
[2023-01-09] MEDS: Gabapentin 300 MG CAP PO SCH ×2 (07:33→13:15)
[2023-01-09] MEDS: Fluconazole 100 MG TAB PO SCH (07:33)
[2023-01-09] MEDS: Amlodipine 10 MG TAB PO SCH (07:33)
[2023-01-09] MEDS: DULoxetine 20 MG CAP PO SCH (07:34)
[2023-01-09] MEDS: HYDROmorphone 2 MG TAB PO SCH ×2 (07:34→13:15)
[2023-01-09] MEDS: Nebivolol HCl 5 MG TAB PO SCH (07:35)
[2023-01-09] MEDS: SUMAtriptan Succinate 50 MG TAB PO PRN (08:39)
[2023-01-09] MEDS: Insulin NPH Human Isophane 100 UNITS/ML (10 ML VIAL) SC SCH (08:40)
[2023-01-09] MEDS: HumaLOG 300 UNITS/3 ML VIAL SC PRN (08:42)
[2023-01-09] MEDS: Pantoprazole 40 MG VIAL IVP SCH (08:43)
[2023-01-09 09:20] VITALS: BP 148/75; TEMP 98.2
== END 2023-01-09 13:51 | disposition home or self-care (01) | DRG 394 ==
LOC: ERS 08:08 → ERHOLD 12:21 → 2SW 16:00 → OBSVTOIN 01-05 12:40 → CCU 01-06 05:50 → 2NO 01-07 02:36
PROVIDERS: ADMIT Student in an Organized Health Care Education/Training Program; ATTEND Family Medicine
PROC: 0DB58ZX Excision of Esophagus, Via Natural or Artificial Opening Endoscopic, Diagnostic (ICD-10-PCS; principal; 2023-01-05)
PROC: 0DB78ZX Excision of Stomach, Pylorus, Via Natural or Artificial Opening Endoscopic, Diagnostic (ICD-10-PCS; 2023-01-05)
DX: T18.128A Food in esophagus causing other injury, initial encounter (principal); E87.1 Hypo-osmolality and hyponatremia; K56.699 Other intestinal obstruction unspecified as to partial versus complete obstruction; F11.93 Opioid use, unspecified with withdrawal; N17.9 Acute kidney failure, unspecified; K22.2 Esophageal obstruction; K21.9 Gastro-esophageal reflux disease without esophagitis; K22.89 Other specified disease of esophagus; E11.9 Type 2 diabetes mellitus without complications; I10 Essential (primary) hypertension; E78.5 Hyperlipidemia, unspecified; E66.01 Morbid (severe) obesity due to excess calories; G89.4 Chronic pain syndrome; F10.90 Alcohol use, unspecified, uncomplicated; W44.F3XA Food entering into or through a natural orifice, initial encounter; I16.0 Hypertensive urgency; M79.7 Fibromyalgia; R00.0 Tachycardia, unspecified; E86.0 Dehydration; R13.10 Dysphagia, unspecified; K44.9 Diaphragmatic hernia without obstruction or gangrene; K29.70 Gastritis, unspecified, without bleeding; R60.0 Localized edema; I95.9 Hypotension, unspecified; R55 Syncope and collapse; Z68.37 Body mass index [BMI] 37.0-37.9, adult; Z79.4 Long term (current) use of insulin; Z79.890 Hormone replacement therapy; Z79.899 Other long term (current) drug therapy; Z98.890 Other specified postprocedural states; Z82.49 Family history of ischemic heart disease and other diseases of the circulatory system; Z98.1 Arthrodesis status; Z98.51 Tubal ligation status; Z90.49 Acquired absence of other specified parts of digestive tract
CPT/HCPCS: 36415; 36416; 70450; 71045; 74174; 74177; 80048; 80053; 80306; 81001; 82088; 82533; 82550; 82570; 83605; 83690; 84156; 84244; 84484; 85025; 88305; 88312; 88313; 90471; 90686; 93005; 93010; 93306; 96361; 96365; 96372; 96375; 96376; C9113; G0008; G0378; J0360; J1170; J1630; J1650; J1815; J1885; J2270; J2405; J2550; J2704; J2765; J3490; J7030; J7050; J7120; Q9967; S0028

== ENCOUNTER 2023-08-04 19:27 | Inpatient (IN) | payer BC ==
[2023-08-04 20:17] LABS: %Basophils 0.8 % (0.0-1.0); %Eosinophils 2.4 % (0.0-10.0); %Monocytes 6.8 % (0.0-10.0); %Neutrophils 59.7 % (42.0-75.0); Hematocrit 40.4 % (36.0-47.0); Hemoglobin 13.1 g/dL (12.0-16.0); Mean Corpuscular HGB CONC 32.4 g/dL (32.0-36.0); Mean Corpuscular Hemoglobin 26.8 pg (27.0-31.0); Mean Corpuscular Volume 82.6 fL (78.0-98.0); Mean Platelet Volume 11.7 fL (7.4-10.4); Platelet Count 274 10x3/uL (130-400); Red Blood Cell (RBC) Count 4.89 mill/uL (4.20-5.40)
[2023-08-04 20:29] LABS: Bilirubin Negative (Negative); Blood, Urine Large (Negative); Glucose, Urine (Dipstick) 250 mg/dL (Negative); Ketone, Urine Trace mg/dL (Negative); Leukocyte Negative (Negative); Nitrite Negative (Negative); Protein, Urine (Dipstick) Negative (Neg-Trace); Urobilinogen 0.2 mg/dL (Less than 2)
[2023-08-04 20:34] LABS: ALT (SGPT) 33 U/L (8-55); AST (SGOT) 42 U/L (5-34); Albumin 3.4 g/dL (3.5-5.0); Alkaline Phosphatase 156 U/L (40-110); Anion Gap 20 mmol/L (10-20); BUN (Urea Nitrogen) 28 mg/dL (9.8-20.1); Bilirubin, Total 0.3 mg/dL (0.2-1.2); CK (CPK) 1094 U/L (29-168); Calc. Creatinine Clearance 0 mL/min (70-130); Calcium 9.2 mg/dL (7.8-10.44); Carbon Dioxide 15 mmol/L (22-29); Chloride 106 mmol/L (98-107); Estimated GFR 14; Glucose 253 mg/dL (70-105); Protein, Total 7.4 g/dL (6.0-8.3); Sodium 136 mmol/L (136-145)
[2023-08-04 20:36] LABS: Clarity Cloudy (Clear); Specific Gravity, Urine 1.029 (1.002-1.036)
[2023-08-04 20:37] LABS: Amphetamine Not Detected (NotDetected); Barbiturates Screen Detected (NotDetected); Benzodiazepine Screen Not Detected (NotDetected); Cocaine Metabolite Screen Not Detected (NotDetected); Methadone Not Detected (NotDetected); Methamphetamine Not Detected (NotDetected); Opiate Screen Detected (NotDetected); Oxycodone Screen Not Detected (NotDetected); Phencyclidine (PCP) Not Detected (NotDetected); THC/Cannabinoid Screen Not Detected (NotDetected); Tricyclic Screen Not Detected (NotDetected)
[2023-08-04 20:38] LABS: Troponin I 0.012 ng/mL (< 0.028)
[2023-08-04 20:39] LABS: Actual Bicarbonate (HCO3v) 18.5 mEq/L (22-28); Base Excess -10.4 mEq/L (-2.0 to +3.0); Calcium, Ionized (venous) 1.12 mmol/L (1.16-1.32); Chloride (VBG) 103 mmol/L (98-106); Hematocrit-VBG 40 % (36.0-47.0); Hemoglobin (Hb) 13.7 g/dL (11.7-16.0); Potassium (VBG) 5.23 mmol/L (3.70-5.30); Sodium 137 mmol/L (133-146)
[2023-08-04 20:39] LABS: Lipase 67 U/L (8-78)
[2023-08-04 20:40] LABS: Acetaminophen Less than 10 mcg/mL (10.0-30.0); Alcohol Less than 10.0 mg/dL (Less than 10); Salicylate Less than 8.0 mg/dL (15.0-30.0)
[2023-08-04 20:41] LABS: pH (venous) 7.159 (7.32-7.43)
[2023-08-04 20:43] LABS: CAUTI Indications for Culture Alt mental st,lethar; WBC/HPF 0-3 HPF (0-3)
[2023-08-04 20:44] LABS: Bacteria/HPF 2+ HPF (None Seen); Other Microscopic Description Less than 2 mL rec'd; Squamous Epithelial 0-3 HPF (0-3); Transitional Epithelial 0-3 HPF (None Seen)
[2023-08-04 20:45] LABS: Urine Culture Reflex No No
[2023-08-04] MEDS ORDERED: cefTRIAXone (ROCEPHIN) 2 GM VIAL ONE (20:57)
[2023-08-04] MEDS ORDERED: Naloxone HCl 2 mg/2 ml Syringe ONE (20:57)
[2023-08-04] MEDS ORDERED: Sodium Chloride 0.9% 100 ML ONE (20:58)
[2023-08-04] MEDS ORDERED: Sodium Bicarb 50 MEQ/50 ML Abboject 8.4% SYRINGE ONE (20:59)
[2023-08-04 22:48] LABS: Actual Bicarbonate (HCO3v) 15.6 mEq/L (22-28); Base Excess -10.9 mEq/L (-2.0 to +3.0); Calcium, Ionized (venous) 0.97 mmol/L (1.16-1.32); Chloride (VBG) 108 mmol/L (98-106); Hematocrit-VBG 42 % (36.0-47.0); Hemoglobin (Hb) 14.4 g/dL (11.7-16.0); Potassium (VBG) 4.19 mmol/L (3.70-5.30); Sodium 141 mmol/L (133-146); pH (venous) 7.245 (7.32-7.43)
[2023-08-04] MEDS ORDERED: Ondansetron PF 4 MG/2 ML Vial IVP PRN (23:45)
[2023-08-04] MEDS ORDERED: Ondansetron ODT 4 MG TAB PO PRN (23:45)
[2023-08-05] MEDS ORDERED: Dextrose 5% in Water 1,000 ML IV PRN (00:03)
[2023-08-05] MEDS ORDERED: Dextrose 50% Abboject 50 ML SYRINGE SLOW IVP PRN (00:03)
[2023-08-05] MEDS ORDERED: Glucagon 1 MG/ML KIT IM PRN (00:03)
[2023-08-05 01:34] VITALS: BMI 40.5
[2023-08-05] MEDS: Lactated Ringer's 1,000 ML IV SCH (01:34)
[2023-08-05] MEDS: Acetaminophen 325 MG TAB PO PRN (01:37)
[2023-08-05] MEDS: Gabapentin 300 MG CAP PO SCH ×2 (03:44→10:11)
[2023-08-05] MEDS: DULoxetine 20 MG CAP PO SCH ×2 (03:45→10:10)
[2023-08-05 04:25] LABS: #Basophils 0.08 10x3/uL (0.0-0.2); %Basophils 0.6 % (0.0-1.0); %Eosinophils 2.1 % (0.0-10.0); %Lymphocytes 23.1 % (21.0-51.0); Hematocrit 35.1 % (36.0-47.0); Hemoglobin 11.3 g/dL (12.0-16.0); Mean Corpuscular HGB CONC 32.2 g/dL (32.0-36.0); Mean Corpuscular Hemoglobin 26.6 pg (27.0-31.0); Mean Corpuscular Volume 82.6 fL (78.0-98.0); Mean Platelet Volume 11.5 fL (7.4-10.4); Platelet Count 217 10x3/uL (130-400); RBC Distribution Width 14.8 % (11.5-14.5); Red Blood Cell (RBC) Count 4.25 mill/uL (4.20-5.40)
[2023-08-05] MEDS: Levothyroxine Sodium 25 MCG TAB PO SCH (05:03)
[2023-08-05 05:21] LABS: ALT (SGPT) 32 U/L (8-55); AST (SGOT) 57 U/L (5-34); Alkaline Phosphatase 144 U/L (40-110); Anion Gap 13 mmol/L (10-20); BUN (Urea Nitrogen) 21 mg/dL (9.8-20.1); Bilirubin, Total 0.5 mg/dL (0.2-1.2); Calc. Creatinine Clearance 51 mL/min (70-130); Calcium 8.4 mg/dL (7.8-10.44); Carbon Dioxide 17 mmol/L (22-29); Chloride 112 mmol/L (98-107); Estimated GFR 31; Globulin 3.6 g/dL (2.4-3.5); Glucose 128 mg/dL (70-105); Potassium 3.5 mmol/L (3.5-5.1); Protein, Total 6.6 g/dL (6.0-8.3); Sodium 138 mmol/L (136-145)
[2023-08-05] MEDS ORDERED: Empagliflozin 25 MG TAB PO SCH (09:00)
[2023-08-05] MEDS: Pantoprazole DR 40 MG TAB PO SCH (10:10)
[2023-08-05] MEDS: Famotidine 20 MG TAB PO SCH (10:11)
[2023-08-05] MEDS: Amlodipine 10 MG TAB PO SCH (10:11)
[2023-08-05] MEDS: hydrOXYzine 25 MG TAB PO SCH (10:12)
[2023-08-05] MEDS: Famotidine/PF 20 mg/2ml Vial SLOW IVP SCH (10:13)
[2023-08-05] MEDS: Topiramate 100 MG TAB PO SCH (10:14)
[2023-08-05] MEDS: guaiFENesin/Codeine 200 mg/20 mg 10 ml Cup PO PRN (12:44)
[2023-08-05] MEDS: HumaLOG 300 UNITS/3 ML VIAL SC PRN (12:48)
[2023-08-05 13:38] VITALS: BMI 40.5
[2023-08-05] MEDS: predniSONE 20 MG TAB PO SCH (14:23)
[2023-08-05] MEDS: HumuLIN 70/30 (300 UNITS/3 ML VIAL) SC SCH (14:58)
[2023-08-05] MEDS: tiZANidine HCl 4 MG TAB PO PRN (17:20)
[2023-08-05] MEDS: Insulin Glargine 30 UNITS/0.3 ML VIAL SC SCH (20:41)
[2023-08-05] MEDS: Rosuvastatin 10 MG TAB PO SCH (20:41)
[2023-08-05] MEDS: cefTRIAXone\\ROCEPHIN 1 GM in Sodium Chloride 0.9% 100 ML IVPB SCH (20:42)
[2023-08-06] MEDS: Insulin Regular, Human 100 UNIT/ML 10 ML VIAL SC PRN (01:17)
[2023-08-06 05:37] LABS: Anion Gap 13 mmol/L (10-20); BUN (Urea Nitrogen) 20 mg/dL (9.8-20.1); Calc. Creatinine Clearance 84 mL/min (70-130); Calcium 9.7 mg/dL (7.8-10.44); Carbon Dioxide 19 mmol/L (22-29); Chloride 111 mmol/L (98-107); Estimated GFR 56; Glucose 341 mg/dL (70-105); Potassium 4.7 mmol/L (3.5-5.1); Sodium 138 mmol/L (136-145)
[2023-08-06 06:10] LABS: #Basophils 0.06 10x3/uL (0.0-0.2); #Eosinphils Less than 0.03 10x3/uL (0.0-0.7); %Basophils 0.5 % (0.0-1.0); %Lymphocytes 11.6 % (21.0-51.0); %Monocytes 3.9 % (0.0-10.0); %Neutrophils 83.6 % (42.0-75.0); Hematocrit 36.2 % (36.0-47.0); Hemoglobin 11.8 g/dL (12.0-16.0); Mean Corpuscular HGB CONC 32.6 g/dL (32.0-36.0); Mean Corpuscular Hemoglobin 26.6 pg (27.0-31.0); Mean Corpuscular Volume 81.7 fL (78.0-98.0); Mean Platelet Volume 12.2 fL (7.4-10.4); Platelet Count 248 10x3/uL (130-400); Red Blood Cell (RBC) Count 4.43 mill/uL (4.20-5.40)
[2023-08-06 12:40] VITALS: BP 175/90; TEMP 98.4
== END 2023-08-06 14:10 | disposition home or self-care (01) | DRG 92 ==
LOC: ERS 19:27 → 2NO 21:40
PROVIDERS: ADMIT Student in an Organized Health Care Education/Training Program; ATTEND Internal Medicine
DX: G92.8 Other toxic encephalopathy (principal); M62.82 Rhabdomyolysis; N17.9 Acute kidney failure, unspecified; J20.9 Acute bronchitis, unspecified; N18.30 Chronic kidney disease, stage 3 unspecified; D63.1 Anemia in chronic kidney disease; I95.9 Hypotension, unspecified; I12.9 Hypertensive chronic kidney disease with stage 1 through stage 4 chronic kidney disease, or unspecified chronic kidney disease; E11.22 Type 2 diabetes mellitus with diabetic chronic kidney disease; E11.65 Type 2 diabetes mellitus with hyperglycemia; N28.1 Cyst of kidney, acquired; M54.9 Dorsalgia, unspecified; T50.7X5A Adverse effect of analeptics and opioid receptor antagonists, initial encounter; G89.29 Other chronic pain; Z79.890 Hormone replacement therapy; Z79.899 Other long term (current) drug therapy; Z79.4 Long term (current) use of insulin; Z90.49 Acquired absence of other specified parts of digestive tract; Z98.890 Other specified postprocedural states; Z98.1 Arthrodesis status
CPT/HCPCS: 36415; 36416; 71045; 76770; 80048; 80053; 80306; 80307; 81001; 82010; 82140; 82550; 82805; 83605; 83690; 83735; 83880; 84300; 84443; 84484; 85025; 87040; 87086; 93005; 93010; J0696; J1815; J2310; J3490; J7120; J7512

== ENCOUNTER 2023-11-12 13:34 | Inpatient (IN) | payer BC ==
[~2023-11-12 13:34] MED LIST changes: -Iopamidol-370 76% 500 ML 1 ML ONE; +Iopamidol-370 76% 500 ML MDV (1 ML CHARGE) ONE
[2023-11-12 15:22] LABS: #Basophils 0.12 10x3/uL (0.0-0.2); #Eosinphils Less than 0.03 10x3/uL (0.0-0.7); %Basophils 0.9 % (0.0-1.0); %Eosinophils 0.1 % (0.0-10.0); %Monocytes 7.1 % (0.0-10.0); %Neutrophils 77.5 % (42.0-75.0); Hematocrit 47.5 % (36.0-47.0); Hemoglobin 16.1 g/dL (12.0-16.0); Mean Corpuscular HGB CONC 33.9 g/dL (32.0-36.0); Mean Corpuscular Hemoglobin 26.2 pg (27.0-31.0); Mean Corpuscular Volume 77.2 fL (78.0-98.0); Platelet Count 253 10x3/uL (130-400); RBC Distribution Width 13.3 % (11.5-14.5); Red Blood Cell (RBC) Count 6.15 mill/uL (4.20-5.40)
[2023-11-12 15:36] LABS: ALT (SGPT) 44 U/L (8-55); AST (SGOT) 39 U/L (5-34); Alkaline Phosphatase 153 U/L (40-110); Anion Gap 24 mmol/L (10-20); BUN (Urea Nitrogen) 11 mg/dL (9.8-20.1); Bilirubin, Total 0.5 mg/dL (0.2-1.2); Calc. Creatinine Clearance 0 mL/min (70-130); Carbon Dioxide 17 mmol/L (22-29); Chloride 99 mmol/L (98-107); Estimated GFR 62; Globulin 4.4 g/dL (2.4-3.5); Glucose 272 mg/dL (70-105); Lipase 43 U/L (8-78); Magnesium 1.5 mg/dL (1.6-2.6); Potassium 3.9 mmol/L (3.5-5.1); Protein, Total 8.4 g/dL (6.0-8.3); Sodium 136 mmol/L (136-145)
[2023-11-12] MEDS ORDERED: Ondansetron ODT 4 MG TAB ONE (15:38)
[2023-11-12] MEDS ORDERED: Promethazine HCl 25 MG/ML VIAL ONE ×2 (15:41→17:02)
[2023-11-12 15:56] LABS: Troponin I Less than 0.010 ng/mL (< 0.028)
[2023-11-12] MEDS ORDERED: Morphine 2 MG/ML VIAL ONE (16:51)
[2023-11-12 17:24] LABS: Actual Bicarbonate (HCO3v) 23.9 mEq/L (22-28); Base Excess 3.6 mEq/L (-2.0 to +3.0); Calcium, Ionized (venous) 1.06 mmol/L (1.16-1.32); Chloride (VBG) 96 mmol/L (98-106); Hematocrit-VBG 50 % (36.0-47.0); Hemoglobin (Hb) 16.9 g/dL (11.7-16.0); Potassium (VBG) 3.85 mmol/L (3.70-5.30); Sodium 141 mmol/L (133-146); pH (venous) 7.575 (7.32-7.43)
[2023-11-12] MEDS ORDERED: fentaNYL 50 mcg/mL 1 mL Vial ONE (18:48)
[2023-11-12] MEDS ORDERED: hydrALAZINE 20 MG/ML VIAL ONE (18:49)
[2023-11-12 19:01] LABS: Bacteria/HPF None Seen HPF (None Seen); Bilirubin Negative (Negative); Blood, Urine Negative (Negative); CAUTI Indications for Culture Fever or rigors; Clarity Clear (Clear); Glucose, Urine (Dipstick) 500 mg/dL (Negative); Ketone, Urine 10 mg/dL (Negative); Leukocyte Negative Leu/uL (Negative); Nitrite Negative (Negative); Protein, Urine (Dipstick) 70 mg/dL (Neg-Trace); RBC/HPF None Seen HPF (0-3); Specific Gravity, Urine 1.024 (1.002-1.036); Squamous Epithelial 0-3 HPF (0-3); Urobilinogen Normal mg/dL (Less than 2); WBC/HPF None Seen HPF (0-3)
[2023-11-12 19:02] LABS: Urine Culture Reflex No No
[2023-11-12] MEDS ORDERED: diphenhydrAMINE 50 MG/ML VIAL ONE (19:10)
[2023-11-12] MEDS ORDERED: Haloperidol Lactate 5 MG/ML VIAL ONE (19:11)
[2023-11-12] MEDS ORDERED: niCARdipine 25 MG/10 ML SDV ONE (19:28)
[2023-11-12 20:07] LABS: Anion Gap 21 mmol/L (10-20); BUN (Urea Nitrogen) 10 mg/dL (9.8-20.1); Calc. Creatinine Clearance 0 mL/min (70-130); Calcium 9.6 mg/dL (7.8-10.44); Carbon Dioxide 23 mmol/L (22-29); Chloride 98 mmol/L (98-107); Estimated GFR 61; Glucose 266 mg/dL (70-105); Potassium 3.9 mmol/L (3.5-5.1); Sodium 138 mmol/L (136-145)
[2023-11-12 20:09] LABS: Acetaminophen Less than 10 mcg/mL (Less than 10); Alcohol Less than 10.0 mg/dL (Less than 10); Salicylate Less than 8.0 mg/dL (Less than 8.0)
[2023-11-12 20:14] LABS: Lactic Acid 4.44 mmol/L (0.5-2.2)
[2023-11-12] MEDS ORDERED: Acetaminophen 650 MG Suppository PR PRN (21:06)
[2023-11-12] MEDS ORDERED: Glucagon 1 MG/ML KIT IM PRN (21:07)
[2023-11-12] MEDS ORDERED: Dextrose 5% in Water 1,000 ML IV PRN (21:07)
[2023-11-12] MEDS ORDERED: Dextrose 50% Abboject 50 ML SYRINGE SLOW IVP PRN (21:07)
[2023-11-12 21:14] LABS: Amphetamine Not Detected (NotDetected); Barbiturates Screen Detected (NotDetected); Benzodiazepine Screen Not Detected (NotDetected); Cocaine Metabolite Screen Not Detected (NotDetected); Methadone Not Detected (NotDetected); Methamphetamine Not Detected (NotDetected); Opiate Screen Detected (NotDetected); Oxycodone Screen Not Detected (NotDetected); Phencyclidine (PCP) Not Detected (NotDetected); THC/Cannabinoid Screen Not Detected (NotDetected); Tricyclic Screen Not Detected (NotDetected)
[2023-11-12] MEDS ORDERED: Magnesium Sulfate 2 GM in Sodium Chloride 0.9% 100 ML IVPB SCH (21:15)
[2023-11-12] MEDS: Sodium Chloride 0.9% 1,000 ML IV SCH (21:15)
[2023-11-12 21:40] VITALS: BMI 36.2
[2023-11-12] MEDS: Magnesium 2 GM/50 ML(in water) 2 GM in Premix 1 BAG IVPB SCH (21:41)
[2023-11-12] MEDS: Metoprolol Tartrate 5 MG (5 mL) VIAL IVP SCH (21:45)
[2023-11-12] MEDS: Ondansetron PF 4 MG/2 ML Vial IVP PRN (21:49)
[2023-11-12] MEDS: Ketorolac Tromethamine 30 MG (1 mL) VIAL IVP PRN (21:51)
[2023-11-12] MEDS: Insulin Lispro 100 UNIT/ML 10 ML VIAL SC PRN (21:57)
[2023-11-12] MEDS: Lorazepam 2 MG/ML VIAL SLOW IVP SCH (22:07)
[2023-11-12] MEDS: Lorazepam 2 MG/ML VIAL ONE (23:50)
[2023-11-13 00:37] LABS: #Basophils 0.08 10x3/uL (0.0-0.2); #Eosinphils Less than 0.03 10x3/uL (0.0-0.7); %Basophils 0.5 % (0.0-1.0); %Lymphocytes 16.6 % (21.0-51.0); %Monocytes 10.9 % (0.0-10.0); %Neutrophils 71.6 % (42.0-75.0); Hematocrit 45.2 % (36.0-47.0); Hemoglobin 15.2 g/dL (12.0-16.0); Mean Corpuscular HGB CONC 33.6 g/dL (32.0-36.0); Mean Corpuscular Hemoglobin 26.3 pg (27.0-31.0); Mean Corpuscular Volume 78.1 fL (78.0-98.0); Mean Platelet Volume 10.4 fL (7.4-10.4); Platelet Count 342 10x3/uL (130-400); RBC Distribution Width 13.7 % (11.5-14.5); Red Blood Cell (RBC) Count 5.79 mill/uL (4.20-5.40)
[2023-11-13] MEDS: Labetalol HCl 100 MG/20 ML VIAL SLOW IVP PRN (00:45)
[2023-11-13] MEDS: Sodium Chloride 0.9% 1,000 ML IV SCH (00:45)
[2023-11-13 00:56] LABS: Anion Gap 18 mmol/L (10-20); BUN (Urea Nitrogen) 8 mg/dL (9.8-20.1); Calc. Creatinine Clearance 97 mL/min (70-130); Calcium 9.4 mg/dL (7.8-10.44); Carbon Dioxide 25 mmol/L (22-29); Chloride 101 mmol/L (98-107); Estimated GFR 76; Glucose 239 mg/dL (70-105); Magnesium 2.1 mg/dL (1.6-2.6); Potassium 3.6 mmol/L (3.5-5.1); Sodium 140 mmol/L (136-145)
[2023-11-13] MEDS: niCARdipine 25 MG in Sodium Chloride 0.9% 250 ML 250 ML IVPB SCH (01:43)
[2023-11-13 03:55] LABS: #Basophils 0.09 10x3/uL (0.0-0.2); #Eosinphils Less than 0.03 10x3/uL (0.0-0.7); %Basophils 0.6 % (0.0-1.0); %Lymphocytes 20.4 % (21.0-51.0); %Monocytes 10.2 % (0.0-10.0); %Neutrophils 68.5 % (42.0-75.0); Hematocrit 45.5 % (36.0-47.0); Mean Corpuscular Hemoglobin 26.1 pg (27.0-31.0); Mean Corpuscular Volume 79.3 fL (78.0-98.0); Mean Platelet Volume 9.9 fL (7.4-10.4); Platelet Count 321 10x3/uL (130-400); RBC Distribution Width 13.9 % (11.5-14.5); Red Blood Cell (RBC) Count 5.74 mill/uL (4.20-5.40)
[2023-11-13 04:11] LABS: Lactic Acid 1.91 mmol/L (0.5-2.2)
[2023-11-13 04:15] LABS: Anion Gap 16 mmol/L (10-20); BUN (Urea Nitrogen) 7 mg/dL (9.8-20.1); Calc. Creatinine Clearance 97 mL/min (70-130); Carbon Dioxide 25 mmol/L (22-29); Chloride 101 mmol/L (98-107); Estimated GFR 77; Glucose 266 mg/dL (70-105); Magnesium 2.2 mg/dL (1.6-2.6); Potassium 3.6 mmol/L (3.5-5.1); Sodium 138 mmol/L (136-145)
[2023-11-13] MEDS: Vancomycin (BATCH) 2 GM in Premix 1 BAG IVPB SCH (04:20)
[2023-11-13] MEDS: Cefepime 1 GM in Sodium Chloride 0.9% 100 ML IVPB SCH (04:20)
[2023-11-13] MEDS: Insulin Lispro 100 UNIT/ML 10 ML VIAL SC PRN (04:22)
[2023-11-13 05:07] LABS: Influenza A by NAA Not Detected (NotDetected); Influenza B by NAA Not Detected (NotDetected); SARS-CoV-2 NAA Rapid Test Not Detected (NotDetected)
[2023-11-13] MEDS: Labetalol HCl 100 MG TAB PO SCH (07:36)
[2023-11-13] MEDS: Pantoprazole DR 40 MG TAB PO SCH (07:36)
[2023-11-13] MEDS: Enoxaparin 40 MG (0.4 mL) SYRINGE SC SCH (07:37)
[2023-11-13] MEDS: Morphine 2 MG/ML VIAL SLOW IVP PRN (07:40)
[2023-11-13] MEDS ORDERED: Metoprolol Tartrate 50 MG TAB PO SCH (09:00)
[2023-11-13] MEDS: Gabapentin 300 MG CAP PO SCH ×2 (10:03→16:37)
[2023-11-13] MEDS: DULoxetine 60 MG CAP PO SCH ×2 (10:03→21:33)
[2023-11-13] MEDS: Topiramate 100 MG TAB PO SCH ×2 (10:03→21:34)
[2023-11-13] MEDS: NIFEdipine XL 30 MG ER.TAB PO SCH (12:54)
[2023-11-13] MEDS: Cefepime 2 GM in Sodium Chloride 0.9% 100 ML IVPB SCH (16:37)
[2023-11-13] MEDS ORDERED: Vancomycin 1 GM in Premix 1 BAG IVPB SCH (18:00)
[2023-11-13] MEDS: Acetaminophen 325 MG TAB PO PRN (21:33)
[2023-11-14] MEDS: Levothyroxine Sodium 25 MCG TAB PO SCH (04:28)
[2023-11-14] MEDS: NIFEdipine XL 30 MG ER.TAB PO SCH (10:48)
[2023-11-14] MEDS: HYDROmorphone 2 MG TAB PO SCH (10:49)
[2023-11-14] MEDS ORDERED: HYDROMORPHONE HCL 4 MG PO SCH (12:00)
[2023-11-14 14:28] LABS: Campy jejuni + coli by PCR Negative (Negative); STEC Shiga Toxin 1+2 Negative (Negative); Salmonella spp. by PCR Negative (Negative); Shigella spp + EIEC by PCR Negative (Negative)
[2023-11-14] MEDS ORDERED: TIZANIDINE HCL 6 MG PO SCH (15:00)
[2023-11-14] MEDS: Metoclopramide HCl 10 MG (2 mL) VIAL IVP PRN (15:38)
[2023-11-14] MEDS: tiZANidine HCl 4 MG TAB PO SCH (15:39)
[2023-11-14] MEDS: Ketorolac Tromethamine 30 MG (1 mL) VIAL IVP PRN (18:19)
[2023-11-14] MEDS: Insulin Glargine 30 UNITS/0.3 ML VIAL SC SCH (21:25)
[2023-11-15 05:17] LABS: %Basophils 1.4 % (0.0-1.0); %Eosinophils 4.3 % (0.0-10.0); %Lymphocytes 44.2 % (21.0-51.0); %Monocytes 7.8 % (0.0-10.0); %Neutrophils 41.9 % (42.0-75.0); Hemoglobin 11.9 g/dL (12.0-16.0); Mean Corpuscular HGB CONC 32.2 g/dL (32.0-36.0); Mean Corpuscular Hemoglobin 25.9 pg (27.0-31.0); Mean Corpuscular Volume 80.4 fL (78.0-98.0); Mean Platelet Volume 10.7 fL (7.4-10.4); Platelet Count 215 10x3/uL (130-400); RBC Distribution Width 14.1 % (11.5-14.5)
[2023-11-15 05:33] LABS: ALT (SGPT) 33 U/L (8-55); AST (SGOT) 29 U/L (5-34); Alkaline Phosphatase 101 U/L (40-110); Anion Gap 12 mmol/L (10-20); BUN (Urea Nitrogen) 11 mg/dL (9.8-20.1); Bilirubin, Total 0.3 mg/dL (0.2-1.2); Calc. Creatinine Clearance 65 mL/min (70-130); Calcium 9.1 mg/dL (7.8-10.44); Carbon Dioxide 25 mmol/L (22-29); Chloride 104 mmol/L (98-107); Estimated GFR 47; Globulin 3.3 g/dL (2.4-3.5); Glucose 154 mg/dL (70-105); Potassium 3.2 mmol/L (3.5-5.1); Protein, Total 6.3 g/dL (6.0-8.3); Sodium 138 mmol/L (136-145)
[2023-11-15 11:35] VITALS: BP 84/58; TEMP 98
[2023-11-15] MEDS: Acetaminophen 500 MG TAB PO PRN (13:42)
== END 2023-11-15 14:03 | disposition home or self-care (01) | DRG 394 ==
LOC: ERS 13:34 → CCU 20:06 → T4-A 11-13 11:27
PROVIDERS: ADMIT Internal Medicine; ATTEND Hospitalist
PROC: 02HV33Z Insertion of Infusion Device into Superior Vena Cava, Percutaneous Approach (ICD-10-PCS; principal; 2023-11-13)
PROC: B548ZZA Ultrasonography of Superior Vena Cava, Guidance (ICD-10-PCS; 2023-11-13)
DX: K52.1 Toxic gastroenteritis and colitis (principal); E87.20 Acidosis, unspecified; T38.3X5A Adverse effect of insulin and oral hypoglycemic [antidiabetic] drugs, initial encounter; E11.9 Type 2 diabetes mellitus without complications; I10 Essential (primary) hypertension; E03.9 Hypothyroidism, unspecified; G89.29 Other chronic pain; M54.50 Low back pain, unspecified; M79.7 Fibromyalgia; I16.0 Hypertensive urgency; E86.0 Dehydration; R00.0 Tachycardia, unspecified; K21.9 Gastro-esophageal reflux disease without esophagitis; G43.909 Migraine, unspecified, not intractable, without status migrainosus; Z79.84 Long term (current) use of oral hypoglycemic drugs; Z79.899 Other long term (current) drug therapy
CPT/HCPCS: 36415; 71045; 74177; 80048; 80053; 80306; 80307; 81001; 82010; 82805; 83605; 83690; 83735; 83880; 83930; 84145; 84443; 84484; 85025; 87040; 87324; 87449; 87505; 93005; 93010; 96361; 96365; 96367; 96372; 96375; J0360; J0692; J1200; J1630; J1650; J1815; J1885; J2060; J2272; J2405; J2550; J2765; J3010; J3370; J3475; J7030; J7050; Q0162; Q9967

== ENCOUNTER 2023-11-21 10:28 | Inpatient (IN) | payer BC ==
[2023-11-21] MEDS ORDERED: Haloperidol Lactate 5 MG/ML VIAL ONE (11:04)
[2023-11-21] MEDS ORDERED: Morphine 4 MG/ML VIAL ONE ×2 (11:11→13:13)
[2023-11-21 11:13] LABS: #Basophils 0.11 10x3/uL (0.0-0.2); #Eosinphils Less than 0.03 10x3/uL (0.0-0.7); %Basophils 0.9 % (0.0-1.0); %Eosinophils 0.1 % (0.0-10.0); %Lymphocytes 17.7 % (21.0-51.0); %Monocytes 6.5 % (0.0-10.0); %Neutrophils 74.5 % (42.0-75.0); Hematocrit 47.4 % (36.0-47.0); Hemoglobin 15.8 g/dL (12.0-16.0); Mean Corpuscular HGB CONC 33.3 g/dL (32.0-36.0); Mean Corpuscular Hemoglobin 26.4 pg (27.0-31.0); Mean Corpuscular Volume 79.1 fL (78.0-98.0); Mean Platelet Volume 9.8 fL (7.4-10.4); Platelet Count 387 10x3/uL (130-400); RBC Distribution Width 13.9 % (11.5-14.5); Red Blood Cell (RBC) Count 5.99 mill/uL (4.20-5.40)
[2023-11-21 11:24] LABS: ALT (SGPT) 41 U/L (8-55); AST (SGOT) 31 U/L (5-34); Albumin 3.8 g/dL (3.5-5.0); Alkaline Phosphatase 159 U/L (40-110); Anion Gap 17 mmol/L (10-20); BUN (Urea Nitrogen) 8 mg/dL (9.8-20.1); Bilirubin, Total 0.4 mg/dL (0.2-1.2); Calc. Creatinine Clearance 0 mL/min (70-130); Calcium 9.6 mg/dL (7.8-10.44); Carbon Dioxide 20 mmol/L (22-29); Chloride 109 mmol/L (98-107); Estimated GFR 70; Globulin 4.3 g/dL (2.4-3.5); Glucose 167 mg/dL (70-105); Magnesium 1.8 mg/dL (1.6-2.6); Potassium 3.7 mmol/L (3.5-5.1); Protein, Total 8.1 g/dL (6.0-8.3); Sodium 142 mmol/L (136-145)
[2023-11-21 11:30] LABS: PTT 27.7 sec (22.9-36.1)
[2023-11-21 11:50] LABS: Actual Bicarbonate (HCO3v) 21.1 mEq/L (22-28); Analyzer IN Cardio ER; Base Excess 0.5 mEq/L (-2.0 to +3.0); Calcium, Ionized (venous) 1.01 mmol/L (1.16-1.32); Chloride (VBG) 107 mmol/L (98-106); Hematocrit-VBG 50 % (36.0-47.0); Hemoglobin (Hb) 16.9 g/dL (11.7-16.0); Potassium (VBG) 3.71 mmol/L (3.70-5.30); Sodium 143 mmol/L (133-146); pH (venous) 7.537 (7.32-7.43)
[2023-11-21 12:34] LABS: Bacteria/HPF None Seen HPF (None Seen); Bilirubin Negative (Negative); Blood, Urine Negative (Negative); CAUTI Indications for Culture < 2yrs of age; Clarity Clear (Clear); Glucose, Urine (Dipstick) 30 mg/dL (Negative); Ketone, Urine Negative (Negative); Leukocyte Negative Leu/uL (Negative); Nitrite Negative (Negative); Protein, Urine (Dipstick) 30 mg/dL (Neg-Trace); RBC/HPF 0-3 HPF (0-3); Specific Gravity, Urine 1.004 (1.002-1.036); Urobilinogen Normal mg/dL (Less than 2); WBC/HPF 0-3 HPF (0-3); pH, Urine 7.5 (5.0-9.0)
[2023-11-21 12:41] LABS: Amphetamine Not Detected (NotDetected); Barbiturates Screen Detected (NotDetected); Benzodiazepine Screen Not Detected (NotDetected); Cocaine Metabolite Screen Not Detected (NotDetected); Methadone Not Detected (NotDetected); Methamphetamine Not Detected (NotDetected); Opiate Screen Detected (NotDetected); Oxycodone Screen Not Detected (NotDetected); Phencyclidine (PCP) Not Detected (NotDetected); THC/Cannabinoid Screen Not Detected (NotDetected); Tricyclic Screen Not Detected (NotDetected)
[2023-11-21 12:53] LABS: Urine Culture Reflex Yes Yes
[2023-11-21] MEDS ORDERED: niCARdipine 25 MG/10 ML SDV ONE ×2 (13:03→16:47)
[2023-11-21] MEDS ORDERED: Aspirin Chewable 81 MG TAB ONE (13:13)
[2023-11-21] MEDS ORDERED: Dextrose 50% Abboject 50 ML SYRINGE SLOW IVP PRN ×2 (13:16)
[2023-11-21] MEDS ORDERED: Dextrose 5% in Water 1,000 ML IV PRN (13:16)
[2023-11-21] MEDS ORDERED: Glucagon 1 MG/ML KIT IM PRN ×2 (13:16)
[2023-11-21 14:13] LABS: Lactic Acid 3.11 mmol/L (0.5-2.2)
[2023-11-21] MEDS: niCARdipine 25 MG in Sodium Chloride 0.9% 250 ML 250 ML IVPB SCH (17:20)
[2023-11-21] MEDS: Ondansetron PF 4 MG/2 ML Vial IVP PRN (17:25)
[2023-11-21] MEDS: Metoclopramide HCl 10 MG (2 mL) VIAL IVP SCH (17:52)
[2023-11-21] MEDS: Sodium Chloride 0.9% 1,000 ML IV SCH (17:58)
[2023-11-21] MEDS: Morphine 2 MG/ML VIAL SLOW IVP PRN (17:58)
[2023-11-21] MEDS: Scopolamine 1 mg/72 hour Patch TD SCH (18:01)
[2023-11-21] MEDS: Promethazine HCl 25 MG/ML VIAL IM PRN (18:51)
[2023-11-21 19:59] LABS: Troponin I 0.043 ng/mL (< 0.028)
[2023-11-21] MEDS: Labetalol HCl 100 MG/20 ML VIAL SLOW IVP PRN (20:01)
[2023-11-21] MEDS: Famotidine/PF 20 mg/2ml Vial SLOW IVP SCH (20:01)
[2023-11-21] MEDS: Insulin Glargine 30 UNITS/0.3 ML VIAL SC SCH (20:02)
[2023-11-21] MEDS: Insulin Lispro 100 UNIT/ML 10 ML VIAL SC PRN (20:03)
[2023-11-21] MEDS: hydrALAZINE 20 MG/ML VIAL SLOW IVP PRN (21:47)
[2023-11-22] MEDS: Insulin Lispro 100 UNIT/ML 10 ML VIAL SC PRN (00:05)
[2023-11-22] MEDS: Acetaminophen 325 MG TAB PO PRN (03:04)
[2023-11-22 04:11] LABS: #Basophils 0.09 10x3/uL (0.0-0.2); %Basophils 0.8 % (0.0-1.0); %Eosinophils 0.9 % (0.0-10.0); %Lymphocytes 34.2 % (21.0-51.0); %Monocytes 10.4 % (0.0-10.0); %Neutrophils 53.4 % (42.0-75.0); Hematocrit 45.1 % (36.0-47.0); Hemoglobin 14.4 g/dL (12.0-16.0); Mean Corpuscular HGB CONC 31.9 g/dL (32.0-36.0); Mean Corpuscular Hemoglobin 26.3 pg (27.0-31.0); Mean Corpuscular Volume 82.4 fL (78.0-98.0); Mean Platelet Volume 10.4 fL (7.4-10.4); Platelet Count 348 10x3/uL (130-400); RBC Distribution Width 14.6 % (11.5-14.5); Red Blood Cell (RBC) Count 5.47 mill/uL (4.20-5.40)
[2023-11-22 04:24] LABS: ALT (SGPT) 40 U/L (8-55); AST (SGOT) 47 U/L (5-34); Albumin 3.4 g/dL (3.5-5.0); Alkaline Phosphatase 149 U/L (40-110); Anion Gap 17 mmol/L (10-20); BUN (Urea Nitrogen) 4 mg/dL (9.8-20.1); Bilirubin, Total 0.4 mg/dL (0.2-1.2); Calc. Creatinine Clearance 117 mL/min (70-130); Calcium 9.1 mg/dL (7.8-10.44); Carbon Dioxide 21 mmol/L (22-29); Chloride 106 mmol/L (98-107); Estimated GFR 92; Globulin 3.8 g/dL (2.4-3.5); Glucose 181 mg/dL (70-105); Potassium 3.5 mmol/L (3.5-5.1); Protein, Total 7.2 g/dL (6.0-8.3); Sodium 140 mmol/L (136-145)
[2023-11-22] MEDS: Enoxaparin 40 MG (0.4 mL) SYRINGE SC SCH (07:58)
[2023-11-22] MEDS: Ondansetron ODT 4 MG TAB PO PRN (10:44)
[2023-11-22] MEDS: Potassium Chloride 20 MEQ in Premix 1 BAG IVPB SCH (10:44)
[2023-11-22] MEDS ORDERED: Electrolyte Replacement Protocol FS PRN (10:45)
[2023-11-22] MEDS: Dicyclomine 10 MG CAP PO SCH (12:10)
[2023-11-22] MEDS: Potassium Chloride 20 MEQ TAB PO SCH (12:10)
[2023-11-22] MEDS: Lidocaine 2% Viscous Solution 20 ML, Aluminum & Magnesium Hydroxide 30 ML, Donnatal Eli... SSW SCH ×3 (12:16→20:12)
[2023-11-22] MEDS: Magnesium 2 GM/50 ML(in water) 2 GM in Premix 1 BAG IVPB SCH (12:22)
[2023-11-22] MEDS: Labetalol HCl 100 MG TAB PO SCH ×2 (13:04→19:43)
[2023-11-22 13:30] VITALS: BMI 37.2
[2023-11-22] MEDS: Gabapentin 300 MG CAP PO SCH (15:13)
[2023-11-22] MEDS: Sucralfate 1 GM TAB PO SCH (17:29)
[2023-11-22 17:41] LABS: Potassium 3.6 mmol/L (3.5-5.1)
[2023-11-22] MEDS: DULoxetine 60 MG CAP PO SCH (20:05)
[2023-11-22] MEDS: Insulin Glargine 30 UNITS/0.3 ML VIAL SC SCH (20:10)
[2023-11-23 04:33] LABS: #Basophils 0.07 10x3/uL (0.0-0.2); %Basophils 0.9 % (0.0-1.0); %Eosinophils 2.7 % (0.0-10.0); %Lymphocytes 43.3 % (21.0-51.0); %Monocytes 10.6 % (0.0-10.0); %Neutrophils 42.4 % (42.0-75.0); Hematocrit 42.7 % (36.0-47.0); Hemoglobin 13.4 g/dL (12.0-16.0); Mean Corpuscular HGB CONC 31.4 g/dL (32.0-36.0); Mean Corpuscular Hemoglobin 26.1 pg (27.0-31.0); Mean Corpuscular Volume 83.1 fL (78.0-98.0); Platelet Count 310 10x3/uL (130-400); RBC Distribution Width 14.7 % (11.5-14.5); Red Blood Cell (RBC) Count 5.14 mill/uL (4.20-5.40)
[2023-11-23 04:42] LABS: Anion Gap 14 mmol/L (10-20); BUN (Urea Nitrogen) 5 mg/dL (9.8-20.1); Calc. Creatinine Clearance 101 mL/min (70-130); Calcium 9.4 mg/dL (7.8-10.44); Carbon Dioxide 24 mmol/L (22-29); Chloride 104 mmol/L (98-107); Estimated GFR 77; Glucose 197 mg/dL (70-105); Sodium 138 mmol/L (136-145)
[2023-11-23 04:46] LABS: Troponin I Less than 0.010 ng/mL (< 0.028)
[2023-11-23] MEDS: Levothyroxine Sodium 25 MCG TAB PO SCH (05:30)
[2023-11-24 06:38] LABS: #Basophils 0.09 10x3/uL (0.0-0.2); %Basophils 1.4 % (0.0-1.0); %Eosinophils 4.8 % (0.0-10.0); %Lymphocytes 51.6 % (21.0-51.0); %Monocytes 10.3 % (0.0-10.0); %Neutrophils 31.6 % (42.0-75.0); Hematocrit 43.1 % (36.0-47.0); Hemoglobin 13.4 g/dL (12.0-16.0); Mean Corpuscular HGB CONC 31.1 g/dL (32.0-36.0); Mean Corpuscular Hemoglobin 26.1 pg (27.0-31.0); Mean Platelet Volume 10.5 fL (7.4-10.4); Platelet Count 280 10x3/uL (130-400); RBC Distribution Width 14.4 % (11.5-14.5); Red Blood Cell (RBC) Count 5.13 mill/uL (4.20-5.40)
[2023-11-24 07:21] LABS: Anion Gap 14 mmol/L (10-20); BUN (Urea Nitrogen) 9 mg/dL (9.8-20.1); Calc. Creatinine Clearance 103 mL/min (70-130); Calcium 9.4 mg/dL (7.8-10.44); Carbon Dioxide 24 mmol/L (22-29); Chloride 103 mmol/L (98-107); Estimated GFR 79; Glucose 132 mg/dL (70-105); Potassium 4.8 mmol/L (3.5-5.1); Sodium 136 mmol/L (136-145)
[2023-11-24 07:46] VITALS: BP 124/91; TEMP 98
== END 2023-11-24 14:33 | disposition home or self-care (01) | DRG 74 ==
LOC: ERS 10:28 → CCU 13:40 → T4-A 11-22 15:02
PROVIDERS: ADMIT Internal Medicine; ATTEND Hospitalist
DX: E11.43 Type 2 diabetes mellitus with diabetic autonomic (poly)neuropathy (principal); I16.0 Hypertensive urgency; E03.9 Hypothyroidism, unspecified; E66.01 Morbid (severe) obesity due to excess calories; K52.9 Noninfective gastroenteritis and colitis, unspecified; K31.84 Gastroparesis; M54.50 Low back pain, unspecified; G89.29 Other chronic pain; M79.7 Fibromyalgia; Z98.1 Arthrodesis status; Z98.51 Tubal ligation status; Z90.49 Acquired absence of other specified parts of digestive tract; Z98.890 Other specified postprocedural states; Z91.148 Patient's other noncompliance with medication regimen for other reason
CPT/HCPCS: 36415; 36416; 71045; 74176; 80048; 80053; 80306; 81001; 82010; 82306; 82805; 83605; 83735; 83880; 83930; 84443; 84484; 85025; 85610; 85730; 87086; 93005; J0360; J1630; J1650; J1815; J2272; J2405; J2550; J2765; J3475; J3480; J3490; J7030; J7050; Q0162

== ENCOUNTER 2024-01-02 06:32 | Day surgery (SDC) | payer BC ==
[2023-12-30 11:06] VITALS: BMI 38.1
[2024-01-02] MEDS ORDERED: Lidocaine 1% PF 5 ML VIAL ONE ×2 (07:03→08:57)
[2024-01-02] MEDS ORDERED: PROPOFOL 40 ML ONE (07:04)
[2024-01-02] MEDS ORDERED: PROPOFOL 20 ML ONE ×2 (09:12→09:23)
[2024-01-02] MEDS ORDERED: Ondansetron PF 4 MG/2 ML Vial ONE (09:17)
== END 2024-01-02 10:20 | disposition home or self-care (01) ==
LOC: SDC 06:32
PROVIDERS: ATTEND Internal Medicine Gastroenterology
PROC: 0DJD8ZZ Inspection of Lower Intestinal Tract, Via Natural or Artificial Opening Endoscopic (ICD-10-PCS; principal; 2024-01-02)
PROC: 0DJ08ZZ Inspection of Upper Intestinal Tract, Via Natural or Artificial Opening Endoscopic (ICD-10-PCS; principal; 2024-01-02)
DX: Z12.11 Encounter for screening for malignant neoplasm of colon (principal); K31.84 Gastroparesis; E03.9 Hypothyroidism, unspecified; E11.22 Type 2 diabetes mellitus with diabetic chronic kidney disease; N18.9 Chronic kidney disease, unspecified; K44.9 Diaphragmatic hernia without obstruction or gangrene; K21.9 Gastro-esophageal reflux disease without esophagitis; K76.0 Fatty (change of) liver, not elsewhere classified; J45.909 Unspecified asthma, uncomplicated; Z86.0100 Personal history of colon polyps, unspecified; Z98.51 Tubal ligation status; Z90.49 Acquired absence of other specified parts of digestive tract; Z79.51 Long term (current) use of inhaled steroids; Z79.4 Long term (current) use of insulin; Z79.899 Other long term (current) drug therapy
CPT/HCPCS: 36416; J2405; J2704

== ENCOUNTER 2024-01-11 09:59 | Outpatient (CLI) | payer BC | END 2024-01-11 10:00 | disposition home or self-care (01) | LOC: CT 09:59 | PROVIDERS: ATTEND Family Medicine | DX: R31.0 Gross hematuria (principal); Z87.442 Personal history of urinary calculi | CPT/HCPCS: 74176 ==

== ENCOUNTER 2024-10-04 09:53 | Inpatient (IN) | payer OTHER ==
[2024-10-04] MEDS ORDERED: Ondansetron PF 4 MG/2 ML Vial ONE ×2 (10:33→14:42)
[2024-10-04 10:56] LABS: #Basophils 0.09 10x3/uL (0.0-0.2); #Eosinophils Less than 0.03 10x3/uL (0.0-0.7); #Monocytes 0.55 10x3/uL (0.11-0.59); #Neutrophils 7.30 10x3/uL (1.40-6.50); %Basophils 0.9 % (0.0-1.0); %Eosinophils 0.0 % (0.0-10.0); %Lymphocytes 19.7 % (21.0-51.0); %Monocytes 5.5 % (0.0-10.0); %Neutrophils 73.6 % (42.0-75.0); Hematocrit 41.5 % (36.0-47.0); Hemoglobin 13.7 g/dL (12.0-16.0); Mean Corpuscular Hemoglobin 25.9 pg (27.0-31.0); Mean Corpuscular Volume 78.4 fL (78.0-98.0); Platelet Count 272 10x3/uL (130-400); Red Blood Cell (RBC) Count 5.29 mill/uL (4.20-5.40); White Blood Cell (WBC) Count 9.93 10x3/uL (4.8-10.8)
[2024-10-04 11:09] LABS: BHCG - Serum Negative (NEGATIVE); Pregs Control Background? CLEAR/WHITE (CLR/WHITE); Pregs Control Bar Appear? YES (CONTROL BAR)
[2024-10-04 11:20] LABS: Bacteria/HPF None Seen HPF (None Seen); CAUTI Indications for Culture Pelvic or flank pain; Glucose, Urine (Dipstick) Greater than 1000 mg/dL (Negative); Leukocyte Negative Leu/uL (Negative); Protein, Urine (Dipstick) 50 mg/dL (Neg-Trace); RBC/HPF 0-3 HPF (0-3); Specific Gravity, Urine 1.043 (1.002-1.036); WBC/HPF 0-3 HPF (0-3)
[2024-10-04 11:21] LABS: Urine Culture Reflex No No
[2024-10-04] MEDS ORDERED: Metoclopramide HCl 10 MG (2 mL) VIAL ONE (11:34)
[2024-10-04 11:36] LABS: ALT (SGPT) 9 U/L (Less than 34); AST (SGOT) 17 U/L (11-34); Albumin 4.0 g/dL (3.1-4.5); Alkaline Phosphatase 157 U/L (40-110); Anion Gap 19 mmol/L (10-20); BUN (Urea Nitrogen) 7 mg/dL (9.8-20.1); Bilirubin, Total 0.3 mg/dL (0.3-1.2); Calc. Creatinine Clearance 0 mL/min (70-130); Calcium 9.5 mg/dL (7.8-10.44); Carbon Dioxide 25 mmol/L (22-29); Chloride 93 mmol/L (98-107); Globulin 4.8 g/dL (2.4-3.5); Glucose 504 mg/dL (70-105); Lipase 24 U/L (8-78); Potassium 3.7 mmol/L (3.5-5.1); Sodium 133 mmol/L (136-145)
[2024-10-04 11:38] LABS: Actual Bicarbonate (HCO3v) 23.2 mEq/L (22-28); Base Excess 1.4 mEq/L (-2.0 to +3.0); Calcium, Ionized (venous) 1.03 mmol/L (1.16-1.32); Chloride (VBG) 93 mmol/L (98-106); Hematocrit-VBG 43 % (36.0-47.0); Hemoglobin (Hb) 14.5 g/dL (11.7-16.0); Potassium (VBG) 3.68 mmol/L (3.70-5.30); Sodium 134 mmol/L (133-146)
[2024-10-04] MEDS ORDERED: Senokot S 8.6-50 MG TAB PO PRN (16:44)
[2024-10-04] MEDS ORDERED: Electrolyte Replacement Protocol 1 EACH FS SCH (16:45)
[2024-10-04] MEDS ORDERED: Glucagon 1 MG/ML KIT IM PRN (16:48)
[2024-10-04] MEDS ORDERED: Dextrose 50% Abboject 50 ML SYRINGE SLOW IVP PRN (16:48)
[2024-10-04] MEDS: NIFEdipine XL 30 MG ER.TAB PO SCH (17:17)
[2024-10-04] MEDS: Calcium Carbonate 500 MG ChewTAB PO PRN (17:53)
[2024-10-04] MEDS: hydrALAZINE 20 MG/ML VIAL SLOW IVP PRN (17:59)
[2024-10-04 19:19] VITALS: BMI 37.5
[2024-10-04] MEDS: Pantoprazole 40 MG VIAL IVP SCH (20:07)
[2024-10-04] MEDS: Metoclopramide HCl 10 MG (2 mL) VIAL IVP SCH (20:07)
[2024-10-04] MEDS: HYDROmorphone 2 MG TAB PO SCH (20:12)
[2024-10-04] MEDS: Insulin Glargine 30 UNITS/0.3 ML VIAL SC SCH (20:18)
[2024-10-04] MEDS ORDERED: Famotidine/PF 20 mg/2ml Vial SLOW IVP SCH (21:00)
[2024-10-04] MEDS: Gabapentin 300 MG CAP PO SCH (23:17)
[2024-10-04] MEDS: Topiramate 100 MG TAB PO SCH (23:17)
[2024-10-04] MEDS: Rosuvastatin 20 MG TAB PO SCH (23:17)
[2024-10-05 04:58] LABS: #Basophils 0.08 10x3/uL (0.0-0.2); #Eosinophils 0.23 10x3/uL (0.0-0.7); #Monocytes 0.87 10x3/uL (0.11-0.59); #Neutrophils 5.00 10x3/uL (1.40-6.50); %Basophils 0.9 % (0.0-1.0); %Eosinophils 2.5 % (0.0-10.0); %Lymphocytes 32.9 % (21.0-51.0); %Monocytes 9.4 % (0.0-10.0); %Neutrophils 54.0 % (42.0-75.0); Hematocrit 36.5 % (36.0-47.0); Hemoglobin 11.5 g/dL (12.0-16.0); Mean Corpuscular Hemoglobin 25.7 pg (27.0-31.0); Mean Corpuscular Volume 81.7 fL (78.0-98.0); Platelet Count 212 10x3/uL (130-400); Red Blood Cell (RBC) Count 4.47 mill/uL (4.20-5.40); White Blood Cell (WBC) Count 9.26 10x3/uL (4.8-10.8)
[2024-10-05 05:24] LABS: ALT (SGPT) 9 U/L (Less than 34); AST (SGOT) 14 U/L (11-34); Albumin 3.3 g/dL (3.1-4.5); Alkaline Phosphatase 114 U/L (40-110); Anion Gap 13 mmol/L (10-20); BUN (Urea Nitrogen) 8 mg/dL (9.8-20.1); Bilirubin, Total 0.2 mg/dL (0.3-1.2); Calc. Creatinine Clearance 82 mL/min (70-130); Calcium 7.6 mg/dL (7.8-10.44); Carbon Dioxide 21 mmol/L (22-29); Chloride 104 mmol/L (98-107); Globulin 3.5 g/dL (2.4-3.5); Glucose 309 mg/dL (70-105); Potassium 3.3 mmol/L (3.5-5.1); Sodium 135 mmol/L (136-145)
[2024-10-05] MEDS: Acetaminophen 325 MG TAB PO PRN (05:47)
[2024-10-05] MEDS: Enoxaparin 40 MG (0.4 mL) SYRINGE SC SCH (08:03)
[2024-10-05] MEDS: PNEUMOC 20-VAL CONJ-DIP CRM/PF 0.5 ML SYRINGE IM ONE (08:04)
[2024-10-05] MEDS: glipiZIDE XL 5 mg ER.TAB PO SCH (08:04)
[2024-10-05] MEDS ORDERED: NIFEdipine XL 30 MG ER.TAB PO SCH (09:00)
[2024-10-05] MEDS: HYDROcodone/Acetaminophen 5/325 mg Tablet PO PRN (10:39)
[2024-10-06 05:03] LABS: #Basophils 0.06 10x3/uL (0.0-0.2); #Eosinophils 0.32 10x3/uL (0.0-0.7); #Monocytes 0.47 10x3/uL (0.11-0.59); #Neutrophils 4.31 10x3/uL (1.40-6.50); %Basophils 0.8 % (0.0-1.0); %Eosinophils 4.3 % (0.0-10.0); %Lymphocytes 30.4 % (21.0-51.0); %Monocytes 6.3 % (0.0-10.0); %Neutrophils 57.9 % (42.0-75.0); Hematocrit 35.7 % (36.0-47.0); Hemoglobin 11.1 g/dL (12.0-16.0); Mean Corpuscular Hemoglobin 25.8 pg (27.0-31.0); Mean Corpuscular Volume 83.0 fL (78.0-98.0); Platelet Count 166 10x3/uL (130-400); Red Blood Cell (RBC) Count 4.30 mill/uL (4.20-5.40); White Blood Cell (WBC) Count 7.44 10x3/uL (4.8-10.8)
[2024-10-06 05:52] LABS: Anion Gap 12 mmol/L (10-20); BUN (Urea Nitrogen) 8 mg/dL (9.8-20.1); Calc. Creatinine Clearance 113 mL/min (70-130); Calcium 8.8 mg/dL (7.8-10.44); Carbon Dioxide 19 mmol/L (22-29); Chloride 107 mmol/L (98-107); Glucose 180 mg/dL (70-105); Magnesium 1.6 mg/dL (1.6-2.6); Potassium 3.8 mmol/L (3.5-5.1); Sodium 134 mmol/L (136-145)
[2024-10-06] MEDS: Magnesium 2 GM/50 ML(in water) 2 GM in Premix 1 BAG IVPB SCH (09:28)
[2024-10-06] MEDS ORDERED: Albuterol 2.5 MG (3 mL) NEB NEB PRN ×2 (13:07→13:08)
[2024-10-06] MEDS: HYDROmorphone 2 MG TAB PO PRN (16:19)
[2024-10-06] MEDS: Fioricet 325/50/40 mg Tablet PO PRN (22:24)
[2024-10-07 06:18] LABS: #Basophils 0.06 10x3/uL (0.0-0.2); #Eosinophils 0.22 10x3/uL (0.0-0.7); #Monocytes 0.44 10x3/uL (0.11-0.59); #Neutrophils 3.79 10x3/uL (1.40-6.50); %Basophils 1.0 % (0.0-1.0); %Eosinophils 3.5 % (0.0-10.0); %Lymphocytes 28.0 % (21.0-51.0); %Monocytes 7.0 % (0.0-10.0); %Neutrophils 60.2 % (42.0-75.0); Hematocrit 35.9 % (36.0-47.0); Hemoglobin 11.3 g/dL (12.0-16.0); Mean Corpuscular Hemoglobin 25.9 pg (27.0-31.0); Mean Corpuscular Volume 82.3 fL (78.0-98.0); Platelet Count 200 10x3/uL (130-400); Red Blood Cell (RBC) Count 4.36 mill/uL (4.20-5.40); White Blood Cell (WBC) Count 6.29 10x3/uL (4.8-10.8)
[2024-10-07 06:33] LABS: Anion Gap 15 mmol/L (10-20); BUN (Urea Nitrogen) 10 mg/dL (9.8-20.1); Calc. Creatinine Clearance 99 mL/min (70-130); Calcium 8.6 mg/dL (7.8-10.44); Carbon Dioxide 21 mmol/L (22-29); Chloride 108 mmol/L (98-107); Glucose 107 mg/dL (70-105); Potassium 3.9 mmol/L (3.5-5.1); Sodium 140 mmol/L (136-145)
[2024-10-07] MEDS: Pantoprazole 40 MG DR.TAB PO SCH (08:05)
[2024-10-07] MEDS ORDERED: NIFEdipine XL 30 MG ER.TAB PO SCH (09:00)
[2024-10-07] MEDS: NIFEdipine XL 30 MG ER.TAB PO SCH (16:06)
[2024-10-08 06:11] LABS: #Basophils 0.07 10x3/uL (0.0-0.2); #Eosinophils 0.30 10x3/uL (0.0-0.7); #Monocytes 0.80 10x3/uL (0.11-0.59); #Neutrophils 4.89 10x3/uL (1.40-6.50); %Basophils 0.8 % (0.0-1.0); %Eosinophils 3.3 % (0.0-10.0); %Lymphocytes 33.1 % (21.0-51.0); %Monocytes 8.8 % (0.0-10.0); %Neutrophils 53.6 % (42.0-75.0); Hematocrit 40.5 % (36.0-47.0); Hemoglobin 12.7 g/dL (12.0-16.0); Mean Corpuscular Hemoglobin 25.7 pg (27.0-31.0); Mean Corpuscular Volume 82.0 fL (78.0-98.0); Platelet Count 240 10x3/uL (130-400); Red Blood Cell (RBC) Count 4.94 mill/uL (4.20-5.40); White Blood Cell (WBC) Count 9.12 10x3/uL (4.8-10.8)
[2024-10-08 06:24] LABS: Anion Gap 14 mmol/L (10-20); BUN (Urea Nitrogen) 12 mg/dL (9.8-20.1); Calc. Creatinine Clearance 102 mL/min (70-130); Calcium 9.5 mg/dL (7.8-10.44); Carbon Dioxide 25 mmol/L (22-29); Chloride 104 mmol/L (98-107); Glucose 78 mg/dL (70-105); Potassium 3.7 mmol/L (3.5-5.1); Sodium 139 mmol/L (136-145)
[2024-10-08] MEDS: NIFEdipine XL 30 MG ER.TAB PO SCH ×2 (08:11→11:40)
[2024-10-08 16:21] VITALS: BMI 40.2
[2024-10-08] MEDS: NIFEdipine XL 60 MG ER.TAB PO SCH (20:17)
[2024-10-09 05:05] LABS: #Basophils 0.07 10x3/uL (0.0-0.2); #Eosinophils 0.31 10x3/uL (0.0-0.7); #Monocytes 0.96 10x3/uL (0.11-0.59); #Neutrophils 5.43 10x3/uL (1.40-6.50); %Basophils 0.7 % (0.0-1.0); %Eosinophils 3.2 % (0.0-10.0); %Lymphocytes 29.6 % (21.0-51.0); %Monocytes 9.9 % (0.0-10.0); %Neutrophils 56.3 % (42.0-75.0); Hematocrit 40.9 % (36.0-47.0); Hemoglobin 12.8 g/dL (12.0-16.0); Mean Corpuscular Hemoglobin 25.8 pg (27.0-31.0); Mean Corpuscular Volume 82.3 fL (78.0-98.0); Platelet Count 261 10x3/uL (130-400); Red Blood Cell (RBC) Count 4.97 mill/uL (4.20-5.40); White Blood Cell (WBC) Count 9.66 10x3/uL (4.8-10.8)
[2024-10-09 05:12] LABS: Anion Gap 13 mmol/L (10-20); BUN (Urea Nitrogen) 14 mg/dL (9.8-20.1); Calc. Creatinine Clearance 99 mL/min (70-130); Calcium 8.9 mg/dL (7.8-10.44); Carbon Dioxide 24 mmol/L (22-29); Chloride 107 mmol/L (98-107); Glucose 152 mg/dL (70-105); Potassium 3.8 mmol/L (3.5-5.1); Sodium 140 mmol/L (136-145)
[2024-10-09] MEDS: Carvedilol 25 MG TAB PO SCH ×2 (10:16→16:22)
[2024-10-09] MEDS: NIFEdipine XL 30 MG ER.TAB PO SCH (22:13)
[2024-10-10 04:53] LABS: #Basophils 0.09 10x3/uL (0.0-0.2); #Eosinophils 0.32 10x3/uL (0.0-0.7); #Monocytes 0.94 10x3/uL (0.11-0.59); #Neutrophils 4.42 10x3/uL (1.40-6.50); %Basophils 1.1 % (0.0-1.0); %Eosinophils 3.7 % (0.0-10.0); %Lymphocytes 32.2 % (21.0-51.0); %Monocytes 11.0 % (0.0-10.0); %Neutrophils 51.6 % (42.0-75.0); Hematocrit 35.4 % (36.0-47.0); Hemoglobin 10.9 g/dL (12.0-16.0); Mean Corpuscular Hemoglobin 25.8 pg (27.0-31.0); Mean Corpuscular Volume 83.7 fL (78.0-98.0); Platelet Count 255 10x3/uL (130-400); Red Blood Cell (RBC) Count 4.23 mill/uL (4.20-5.40); White Blood Cell (WBC) Count 8.56 10x3/uL (4.8-10.8)
[2024-10-10 05:05] LABS: Anion Gap 13 mmol/L (10-20); BUN (Urea Nitrogen) 23 mg/dL (9.8-20.1); Calc. Creatinine Clearance 69 mL/min (70-130); Calcium 9.1 mg/dL (7.8-10.44); Carbon Dioxide 25 mmol/L (22-29); Chloride 105 mmol/L (98-107); Glucose 151 mg/dL (70-105); Potassium 3.9 mmol/L (3.5-5.1); Sodium 139 mmol/L (136-145)
[2024-10-10] MEDS ORDERED: Ropivacaine 0.5% HCl/PF (150 MG/30 ML VIAL) ONE (12:00)
[2024-10-10] MEDS ORDERED: CEFAZOLIN 2 GM VIAL ONE (12:13)
[2024-10-10] MEDS ORDERED: Lidocaine 1% PF 5 ML VIAL ONE (12:17)
[2024-10-10] MEDS ORDERED: PROPOFOL 20 ML ONE (12:17)
[2024-10-10] MEDS ORDERED: Ondansetron PF 4 MG/2 ML Vial ONE (12:17)
[2024-10-10] MEDS ORDERED: Ketorolac Tromethamine 30 MG (1 mL) VIAL ONE (12:17)
[2024-10-10] MEDS ORDERED: fentaNYL PF 100 MCG/2 ML SYRINGE ONE (13:52)
[2024-10-10] MEDS ORDERED: HYDROmorphone 0.5 MG/0.5 ML SYRINGE ONE (14:01)
[2024-10-11 06:00] LABS: #Basophils 0.09 10x3/uL (0.0-0.2); #Eosinophils 0.20 10x3/uL (0.0-0.7); #Monocytes 1.47 10x3/uL (0.11-0.59); #Neutrophils 6.23 10x3/uL (1.40-6.50); %Basophils 0.9 % (0.0-1.0); %Eosinophils 1.9 % (0.0-10.0); %Lymphocytes 23.7 % (21.0-51.0); %Monocytes 14.0 % (0.0-10.0); %Neutrophils 59.1 % (42.0-75.0); Hematocrit 37.5 % (36.0-47.0); Hemoglobin 11.5 g/dL (12.0-16.0); Mean Corpuscular Hemoglobin 25.7 pg (27.0-31.0); Mean Corpuscular Volume 83.7 fL (78.0-98.0); Platelet Count 327 10x3/uL (130-400); Red Blood Cell (RBC) Count 4.48 mill/uL (4.20-5.40); White Blood Cell (WBC) Count 10.53 10x3/uL (4.8-10.8)
[2024-10-11 06:15] LABS: Anion Gap 14 mmol/L (10-20); BUN (Urea Nitrogen) 17 mg/dL (9.8-20.1); Calc. Creatinine Clearance 89 mL/min (70-130); Calcium 8.6 mg/dL (7.8-10.44); Carbon Dioxide 23 mmol/L (22-29); Chloride 101 mmol/L (98-107); Glucose 155 mg/dL (70-105); Potassium 3.5 mmol/L (3.5-5.1); Sodium 134 mmol/L (136-145)
[2024-10-11] MEDS: Ketorolac Tromethamine 30 MG (1 mL) VIAL IVP SCH (12:13)
[2024-10-11] MEDS: Gabapentin 400 MG CAP PO SCH (14:33)
[2024-10-12 05:25] LABS: #Basophils 0.04 10x3/uL (0.0-0.2); #Eosinophils 0.23 10x3/uL (0.0-0.7); #Monocytes 0.94 10x3/uL (0.11-0.59); #Neutrophils 4.04 10x3/uL (1.40-6.50); %Basophils 0.5 % (0.0-1.0); %Eosinophils 2.9 % (0.0-10.0); %Lymphocytes 34.0 % (21.0-51.0); %Monocytes 11.7 % (0.0-10.0); %Neutrophils 50.4 % (42.0-75.0); Hematocrit 32.8 % (36.0-47.0); Hemoglobin 10.1 g/dL (12.0-16.0); Mean Corpuscular Hemoglobin 25.9 pg (27.0-31.0); Mean Corpuscular Volume 84.1 fL (78.0-98.0); Platelet Count 230 10x3/uL (130-400); Red Blood Cell (RBC) Count 3.90 mill/uL (4.20-5.40); White Blood Cell (WBC) Count 8.01 10x3/uL (4.8-10.8)
[2024-10-12 06:00] LABS: Anion Gap 12 mmol/L (10-20); BUN (Urea Nitrogen) 28 mg/dL (9.8-20.1); Calc. Creatinine Clearance 77 mL/min (70-130); Calcium 8.8 mg/dL (7.8-10.44); Carbon Dioxide 24 mmol/L (22-29); Chloride 103 mmol/L (98-107); Glucose 143 mg/dL (70-105); Potassium 3.4 mmol/L (3.5-5.1); Sodium 136 mmol/L (136-145)
[2024-10-12] MEDS: NIFEdipine XL 30 MG ER.TAB PO SCH (08:37)
[2024-10-12] MEDS: NOREPINEPHRINE 8 MG/250 ML-D5W 250 ML ONE (14:57)
[2024-10-13 04:35] LABS: #Basophils 0.04 10x3/uL (0.0-0.2); #Eosinophils 0.23 10x3/uL (0.0-0.7); #Monocytes 0.76 10x3/uL (0.11-0.59); #Neutrophils 4.43 10x3/uL (1.40-6.50); %Basophils 0.5 % (0.0-1.0); %Eosinophils 2.9 % (0.0-10.0); %Lymphocytes 31.0 % (21.0-51.0); %Monocytes 9.5 % (0.0-10.0); %Neutrophils 55.6 % (42.0-75.0); Hematocrit 32.0 % (36.0-47.0); Hemoglobin 9.7 g/dL (12.0-16.0); Mean Corpuscular Hemoglobin 25.9 pg (27.0-31.0); Mean Corpuscular Volume 85.6 fL (78.0-98.0); Platelet Count 235 10x3/uL (130-400); Red Blood Cell (RBC) Count 3.74 mill/uL (4.20-5.40); White Blood Cell (WBC) Count 7.97 10x3/uL (4.8-10.8)
[2024-10-13 05:11] LABS: Anion Gap 10 mmol/L (10-20); BUN (Urea Nitrogen) 24 mg/dL (9.8-20.1); Calc. Creatinine Clearance 86 mL/min (70-130); Calcium 8.9 mg/dL (7.8-10.44); Carbon Dioxide 23 mmol/L (22-29); Chloride 109 mmol/L (98-107); Glucose 210 mg/dL (70-105); Potassium 4.0 mmol/L (3.5-5.1); Sodium 138 mmol/L (136-145)
[2024-10-14 04:45] LABS: #Basophils 0.06 10x3/uL (0.0-0.2); #Eosinophils 0.31 10x3/uL (0.0-0.7); #Monocytes 0.81 10x3/uL (0.11-0.59); #Neutrophils 3.60 10x3/uL (1.40-6.50); %Basophils 0.8 % (0.0-1.0); %Eosinophils 4.1 % (0.0-10.0); %Lymphocytes 36.5 % (21.0-51.0); %Monocytes 10.7 % (0.0-10.0); %Neutrophils 47.6 % (42.0-75.0); Hematocrit 34.6 % (36.0-47.0); Hemoglobin 10.7 g/dL (12.0-16.0); Mean Corpuscular Hemoglobin 26.1 pg (27.0-31.0); Mean Corpuscular Volume 84.4 fL (78.0-98.0); Platelet Count 256 10x3/uL (130-400); Red Blood Cell (RBC) Count 4.10 mill/uL (4.20-5.40); White Blood Cell (WBC) Count 7.56 10x3/uL (4.8-10.8)
[2024-10-14 05:13] LABS: Anion Gap 13 mmol/L (10-20); BUN (Urea Nitrogen) 24 mg/dL (9.8-20.1); Calc. Creatinine Clearance 105 mL/min (70-130); Calcium 9.1 mg/dL (7.8-10.44); Carbon Dioxide 23 mmol/L (22-29); Chloride 107 mmol/L (98-107); Glucose 101 mg/dL (70-105); Potassium 3.6 mmol/L (3.5-5.1); Sodium 139 mmol/L (136-145)
[2024-10-14] MEDS: Losartan 25 MG TAB PO SCH (08:47)
[2024-10-14] MEDS: Insulin Glargine 30 UNITS/0.3 ML VIAL SC SCH (10:53)
[2024-10-15 06:28] LABS: #Basophils 0.07 10x3/uL (0.0-0.2); #Eosinophils 0.36 10x3/uL (0.0-0.7); #Monocytes 0.90 10x3/uL (0.11-0.59); #Neutrophils 5.89 10x3/uL (1.40-6.50); %Basophils 0.7 % (0.0-1.0); %Eosinophils 3.6 % (0.0-10.0); %Lymphocytes 28.4 % (21.0-51.0); %Monocytes 8.9 % (0.0-10.0); %Neutrophils 58.0 % (42.0-75.0); Hematocrit 37.7 % (36.0-47.0); Hemoglobin 11.7 g/dL (12.0-16.0); Mean Corpuscular Hemoglobin 26.0 pg (27.0-31.0); Mean Corpuscular Volume 83.8 fL (78.0-98.0); Platelet Count 344 10x3/uL (130-400); Red Blood Cell (RBC) Count 4.50 mill/uL (4.20-5.40); White Blood Cell (WBC) Count 10.14 10x3/uL (4.8-10.8)
[2024-10-15 06:46] LABS: Anion Gap 15 mmol/L (10-20); BUN (Urea Nitrogen) 14 mg/dL (9.8-20.1); Calc. Creatinine Clearance 121 mL/min (70-130); Calcium 9.7 mg/dL (7.8-10.44); Carbon Dioxide 24 mmol/L (22-29); Chloride 107 mmol/L (98-107); Glucose 109 mg/dL (70-105); Potassium 3.9 mmol/L (3.5-5.1); Sodium 142 mmol/L (136-145)
[2024-10-16 09:03] VITALS: BP 146/86; TEMP 98.7
== END 2024-10-16 11:46 | disposition home or self-care (01) | DRG 982 ==
LOC: ERS 09:53 → SUATTDRO 09:53 → OBS 14:33 → MSONC 10-11 14:15 → CCU 10-12 09:07 → MSONC 10-12 17:29
PROVIDERS: ADMIT Internal Medicine; ATTEND Internal Medicine
PROC: 0QSJ04Z Reposition Right Fibula with Internal Fixation Device, Open Approach (ICD-10-PCS; principal; 2024-10-10)
PROC: 3E033XZ Introduction of Vasopressor into Peripheral Vein, Percutaneous Approach (ICD-10-PCS; 2024-10-12)
DX: E11.43 Type 2 diabetes mellitus with diabetic autonomic (poly)neuropathy (principal); N17.9 Acute kidney failure, unspecified; Z68.41 Body mass index [BMI] 40.0-44.9, adult; E11.65 Type 2 diabetes mellitus with hyperglycemia; Z90.49 Acquired absence of other specified parts of digestive tract; I16.0 Hypertensive urgency; I95.2 Hypotension due to drugs; E03.9 Hypothyroidism, unspecified; E78.5 Hyperlipidemia, unspecified; I10 Essential (primary) hypertension; M79.7 Fibromyalgia; G89.29 Other chronic pain; E66.9 Obesity, unspecified; Z98.890 Other specified postprocedural states; K20.90 Esophagitis, unspecified without bleeding; S82.891A Other fracture of right lower leg, initial encounter for closed fracture; S82.401A Unspecified fracture of shaft of right fibula, initial encounter for closed fracture; K31.84 Gastroparesis; Z79.899 Other long term (current) drug therapy; Z79.890 Hormone replacement therapy
CPT/HCPCS: 36415; 36416; 74176; 80048; 80053; 81001; 82010; 82805; 83036; 83605; 83690; 83735; 84703; 85025; 90471; 90677; 93005; 93010; 96374; 96375; 96376; C1713; G0009; J0166; J0360; J1171; J1650; J1815; J1885; J2250; J2270; J2405; J2470; J2550; J2704; J2765; J2795; J3010; J3475; J7030

== ENCOUNTER 2024-11-08 12:04 | Inpatient (IN) | payer OTHER ==
[2024-11-08] MEDS ORDERED: hydrALAZINE 20 MG/ML VIAL ONE (13:29)
[2024-11-08] MEDS ORDERED: Ondansetron PF 4 MG/2 ML Vial ONE (14:08)
[2024-11-08 14:14] LABS: #Basophils 0.05 10x3/uL (0.0-0.2); #Eosinophils Less than 0.03 10x3/uL (0.0-0.7); #Monocytes 0.69 10x3/uL (0.11-0.59); #Neutrophils 7.71 10x3/uL (1.40-6.50); %Basophils 0.5 % (0.0-1.0); %Eosinophils 0.0 % (0.0-10.0); %Lymphocytes 19.6 % (21.0-51.0); %Monocytes 6.5 % (0.0-10.0); %Neutrophils 73.0 % (42.0-75.0); Hematocrit 42.7 % (36.0-47.0); Hemoglobin 14.1 g/dL (12.0-16.0); Mean Corpuscular Hemoglobin 26.2 pg (27.0-31.0); Mean Corpuscular Volume 79.2 fL (78.0-98.0); Platelet Count 286 10x3/uL (130-400); Red Blood Cell (RBC) Count 5.39 mill/uL (4.20-5.40); White Blood Cell (WBC) Count 10.56 10x3/uL (4.8-10.8)
[2024-11-08 14:35] LABS: Magnesium 1.5 mg/dL (1.6-2.6)
[2024-11-08 14:45] LABS: ALT (SGPT) 32 U/L (Less than 34); AST (SGOT) 40 U/L (11-34); Albumin 3.8 g/dL (3.1-4.5); Alkaline Phosphatase 168 U/L (40-110); Anion Gap 21 mmol/L (10-20); BUN (Urea Nitrogen) 8 mg/dL (9.8-20.1); Bilirubin, Total 0.6 mg/dL (0.3-1.2); Calc. Creatinine Clearance 0 mL/min (70-130); Calcium 10.1 mg/dL (7.8-10.44); Carbon Dioxide 20 mmol/L (22-29); Chloride 98 mmol/L (98-107); Globulin 5.0 g/dL (2.4-3.5); Glucose 437 mg/dL (70-105); Lipase 24 U/L (8-78); Potassium 3.4 mmol/L (3.5-5.1); Sodium 136 mmol/L (136-145)
[2024-11-08] MEDS ORDERED: Magnesium 2 GM/50 ML BAG (IN WATER) ONE (15:23)
[2024-11-08 15:37] LABS: Bacteria/HPF None Seen HPF (None Seen); CAUTI Indications for Culture Acute Hematuria; Glucose, Urine (Dipstick) Greater than 1000 mg/dL (Negative); Leukocyte Negative Leu/uL (Negative); Protein, Urine (Dipstick) 200 mg/dL (Neg-Trace); RBC/HPF 0-3 HPF (0-3); Specific Gravity, Urine 1.018 (1.002-1.036); WBC/HPF 0-3 HPF (0-3)
[2024-11-08] MEDS ORDERED: niCARdipine 25 MG/10 ML SDV ONE (15:44)
[2024-11-08 15:48] LABS: Actual Bicarbonate (HCO3v) 21.5 mEq/L (22-28); Base Excess -0.1 mEq/L (-2.0 to +3.0); Calcium, Ionized (venous) 1.07 mmol/L (1.16-1.32); Chloride (VBG) 103 mmol/L (98-106); Hematocrit-VBG 42 % (36.0-47.0); Hemoglobin (Hb) 14.4 g/dL (11.7-16.0); Potassium (VBG) 3.96 mmol/L (3.70-5.30); Sodium 141 mmol/L (133-146)
[2024-11-08 15:51] LABS: Urine Culture Reflex No No
[2024-11-08] MEDS ORDERED: Acetaminophen 500 MG TAB ONE (16:15)
[2024-11-08] MEDS ORDERED: Ketorolac Tromethamine 30 MG (1 mL) VIAL ONE (16:15)
[2024-11-08] MEDS ORDERED: Albuterol 2.5 MG (3 mL) NEB NEB PRN (17:33)
[2024-11-08] MEDS ORDERED: Electrolyte Replacement Protocol 1 EACH FS SCH (17:34)
[2024-11-08] MEDS ORDERED: Glucagon 1 MG/ML KIT IM PRN (17:34)
[2024-11-08] MEDS ORDERED: Dextrose 50% Abboject 50 ML SYRINGE SLOW IVP PRN (17:34)
[2024-11-08] MEDS ORDERED: niCARdipine 40MG In NaCl 40 MG/200 ML BAG IVPB SCH (17:45)
[2024-11-08 18:05] VITALS: BMI 38.9
[2024-11-08] MEDS: PHOS-NAK 1 PKT PACK PO SCH (18:28)
[2024-11-08] MEDS: HYDROmorphone 0.5 MG/0.5 ML SYRINGE SLOW IVP SCH (18:34)
[2024-11-08] MEDS: niCARdipine 25 MG in Sodium Chloride 0.9% 250 ML 250 ML IVPB SCH (19:35)
[2024-11-08] MEDS: Potassium Chloride 20 MEQ in Premix 1 BAG IVPB SCH (22:01)
[2024-11-08] MEDS: Famotidine/PF 20 mg/2ml Vial SLOW IVP SCH (22:07)
[2024-11-08] MEDS: HYDROmorphone 2 MG TAB PO PRN (22:56)
[2024-11-08] MEDS: Metoprolol Tartrate 5 MG (5 mL) VIAL IVP SCH (23:46)
[2024-11-09] MEDS: PNEUMOC 20-VAL CONJ-DIP CRM/PF 0.5 ML SYRINGE IM ONE (00:55)
[2024-11-09] MEDS: QUEtiapine 25 MG TAB PO SCH ×2 (01:07→20:14)
[2024-11-09] MEDS: Lidocaine 2% Viscous Solution 10 ML, Aluminum & Magnesium Hydroxide 30 ML SSW SCH (03:18)
[2024-11-09 04:26] LABS: #Basophils 0.05 10x3/uL (0.0-0.2); #Eosinophils Less than 0.03 10x3/uL (0.0-0.7); #Monocytes 0.93 10x3/uL (0.11-0.59); #Neutrophils 7.97 10x3/uL (1.40-6.50); %Basophils 0.4 % (0.0-1.0); %Eosinophils 0.2 % (0.0-10.0); %Lymphocytes 19.6 % (21.0-51.0); %Monocytes 8.3 % (0.0-10.0); %Neutrophils 71.1 % (42.0-75.0); Hematocrit 39.1 % (36.0-47.0); Hemoglobin 12.4 g/dL (12.0-16.0); Mean Corpuscular Hemoglobin 25.9 pg (27.0-31.0); Mean Corpuscular Volume 81.8 fL (78.0-98.0); Platelet Count 224 10x3/uL (130-400); Red Blood Cell (RBC) Count 4.78 mill/uL (4.20-5.40); White Blood Cell (WBC) Count 11.21 10x3/uL (4.8-10.8)
[2024-11-09 04:48] LABS: ALT (SGPT) 38 U/L (Less than 34); AST (SGOT) 68 U/L (11-34); Albumin 3.3 g/dL (3.1-4.5); Alkaline Phosphatase 143 U/L (40-110); Anion Gap 16 mmol/L (10-20); BUN (Urea Nitrogen) 6 mg/dL (9.8-20.1); Bilirubin, Total 0.4 mg/dL (0.3-1.2); Calc. Creatinine Clearance 126 mL/min (70-130); Calcium 8.8 mg/dL (7.8-10.44); Carbon Dioxide 20 mmol/L (22-29); Chloride 103 mmol/L (98-107); Globulin 4.2 g/dL (2.4-3.5); Glucose 343 mg/dL (70-105); Potassium 3.6 mmol/L (3.5-5.1); Sodium 135 mmol/L (136-145)
[2024-11-09 08:07] LABS: Magnesium 2.0 mg/dL (1.6-2.6)
[2024-11-09] MEDS: Enoxaparin 40 MG (0.4 mL) SYRINGE SC SCH (08:08)
[2024-11-09] MEDS: Pantoprazole 40 MG VIAL IVP SCH (08:09)
[2024-11-09] MEDS ORDERED: Enoxaparin 40 MG (0.4 mL) SYRINGE SC SCH (09:00)
[2024-11-09] MEDS: Magnesium 2 GM/50 ML(in water) 2 GM in Premix 1 BAG IVPB SCH (10:14)
[2024-11-09] MEDS: Insulin Glargine 30 UNITS/0.3 ML VIAL SC SCH (10:14)
[2024-11-09] MEDS ORDERED: Iopamidol-370 76% 500 ML MDV (1 ML CHARGE) ONE (11:55)
[2024-11-09] MEDS ORDERED: Albuterol 200 PUFF INH INH PRN (15:53)
[2024-11-09] MEDS: Enoxaparin 100 MG (1 mL) SYRINGE SC SCH (17:28)
[2024-11-09] MEDS: Rosuvastatin 20 MG TAB PO SCH (20:14)
[2024-11-10] MEDS: Pantoprazole 40 MG DR.TAB PO SCH (09:26)
[2024-11-10] MEDS: Enoxaparin 100 MG (1 mL) SYRINGE SC SCH (09:26)
[2024-11-10] MEDS: Losartan 25 MG TAB PO SCH (09:34)
[2024-11-10] MEDS: Insulin Glargine 30 UNITS/0.3 ML VIAL SC SCH (09:54)
[2024-11-10] MEDS: Ondansetron PF 4 MG/2 ML Vial IVP PRN (17:53)
[2024-11-10] MEDS: QUEtiapine 25 MG TAB PO SCH (20:33)
[2024-11-11] MEDS: Mupirocin 1 GM TUBE NASAL DECOLONIZATION NASAL SCH (00:07)
[2024-11-11] MEDS: Losartan 25 MG TAB PO SCH (08:51)
[2024-11-11] MEDS: Insulin Glargine 30 UNITS/0.3 ML VIAL SC SCH (08:53)
[2024-11-11 09:36] LABS: Anion Gap 14 mmol/L (10-20); BUN (Urea Nitrogen) 10 mg/dL (9.8-20.1); Calc. Creatinine Clearance 115 mL/min (70-130); Calcium 9.8 mg/dL (7.8-10.44); Carbon Dioxide 27 mmol/L (22-29); Chloride 99 mmol/L (98-107); Glucose 219 mg/dL (70-105); Potassium 4.1 mmol/L (3.5-5.1); Sodium 136 mmol/L (136-145)
[2024-11-12 06:17] LABS: #Basophils 0.06 10x3/uL (0.0-0.2); #Eosinophils 0.33 10x3/uL (0.0-0.7); #Monocytes 0.52 10x3/uL (0.11-0.59); #Neutrophils 4.04 10x3/uL (1.40-6.50); %Basophils 0.7 % (0.0-1.0); %Eosinophils 4.0 % (0.0-10.0); %Lymphocytes 39.3 % (21.0-51.0); %Monocytes 6.3 % (0.0-10.0); %Neutrophils 49.5 % (42.0-75.0); Hematocrit 41.1 % (36.0-47.0); Hemoglobin 13.0 g/dL (12.0-16.0); Mean Corpuscular Hemoglobin 25.9 pg (27.0-31.0); Mean Corpuscular Volume 82.0 fL (78.0-98.0); Platelet Count 238 10x3/uL (130-400); Red Blood Cell (RBC) Count 5.01 mill/uL (4.20-5.40); White Blood Cell (WBC) Count 8.19 10x3/uL (4.8-10.8)
[2024-11-12 06:31] LABS: Anion Gap 15 mmol/L (10-20); BUN (Urea Nitrogen) 12 mg/dL (9.8-20.1); Calc. Creatinine Clearance 121 mL/min (70-130); Calcium 9.4 mg/dL (7.8-10.44); Carbon Dioxide 27 mmol/L (22-29); Chloride 98 mmol/L (98-107); Glucose 189 mg/dL (70-105); Potassium 3.6 mmol/L (3.5-5.1); Sodium 136 mmol/L (136-145)
[2024-11-12] MEDS: Apixaban 5 MG TAB PO SCH (21:09)
[2024-11-13] MEDS: Losartan 25 MG TAB PO SCH (08:46)
[2024-11-13 12:37] VITALS: BP 173/92; TEMP 98.5
[2024-11-19] MEDS ORDERED: Apixaban 5 MG TAB PO SCH (21:00)
== END 2024-11-13 12:36 | disposition home or self-care (01) | DRG 176 ==
LOC: ERS 12:04 → ERHOLD 15:55 → CCU 17:52 → T4-B 11-11 11:02
PROVIDERS: ADMIT Internal Medicine; ATTEND Family Medicine
DX: I26.93 Single subsegmental thrombotic pulmonary embolism without acute cor pulmonale (principal); E87.20 Acidosis, unspecified; E66.9 Obesity, unspecified; E78.5 Hyperlipidemia, unspecified; E03.9 Hypothyroidism, unspecified; E11.9 Type 2 diabetes mellitus without complications; I10 Essential (primary) hypertension; R00.0 Tachycardia, unspecified; M79.7 Fibromyalgia; I16.0 Hypertensive urgency; G89.4 Chronic pain syndrome; M54.50 Low back pain, unspecified; Z79.890 Hormone replacement therapy; Z79.899 Other long term (current) drug therapy
CPT/HCPCS: 36415; 36416; 71045; 71275; 74177; 80048; 80053; 81001; 82010; 82805; 83605; 83690; 83735; 84100; 85025; 86141; 87428; 93005; 93306; 96361; 96365; 96367; 96375; 96376; J0360; J1171; J1650; J1815; J1885; J2470; J2550; J3475; J3480; J7030; J7050; J7120; Q9967